=== PATIENT | female | born 1960 | race Caucasian/White ===

== ENCOUNTER 2020-08-22 15:16 | Outpatient (REF) | payer MEDICARE, MEDICAID, SELFPAY | END 2020-08-22 15:17 | disposition home or self-care (01) | LOC: HO.LAB 15:16 | PROVIDERS: Visit Provider Internal Medicine | DX: Z20.822 Contact with and (suspected) exposure to COVID-19 (principal) | CPT/HCPCS: 36415; C9803; U0003 ==

== ENCOUNTER 2020-10-10 09:25 | Outpatient (REF) | payer MEDICARE, MEDICAID, SELFPAY | END 2020-10-10 09:26 | disposition home or self-care (01) | LOC: HO.LAB 09:25 | PROVIDERS: PCP Registered Nurse; Visit Provider Internal Medicine | DX: Z20.822 Contact with and (suspected) exposure to COVID-19 (principal) | CPT/HCPCS: 36415; C9803; U0003; U0005 ==

== ENCOUNTER 2020-12-25 23:56 | Emergency (ER) | payer MEDICARE, MEDICAID, SELFPAY ==
[2020-12-26 00:22] VITALS: BP 122/91; PULSE 79; RESP 18; TEMP 36.6; O2SAT 97; BMI 30.7
--- NOTE | 2020-12-26 00:42 | ECG_ITS ---
Test Reason : PALPITTAIONS Blood Pressure : / mmHG Vent. Rate : 073 BPM Atrial Rate : 073 BPM P-R Int : 198 ms QRS Dur : 068 ms QT Int : 422 ms P-R-T Axes : 050 047 048 degrees QTc Int : 464 ms Normal sinus rhythm Normal ECG No previous ECGs available Referred By: Miguel Bhakta Electronically Signed By:ARJUN CADENA MD
--- NOTE | 2020-12-26 01:37 | ED_ITS ---
HPI - Arrhythmia/Palpitations General Chief Complaint: Arrhythmia/Palpitations Stated Complaint: ? Time Seen by Provider: 12/26/20 00:42 Source: patient Mode of arrival: EMS Limitations: no limitations History of Present Illness HPI narrative: Patient history of anxiety no known coronary artery disease often get palpitation lasting a few seconds in the past but today around 23:00 while relaxing watching TV noticed heart was beating fast with dizziness lasted for about half an hour when EMS came patient was getting better and heart rate was between 90 and 110. Patient denies any chest pain no shortness of breath no fever or chills no cough no syncope episode patient never had evaluation done by sales compensation analyst patient was feeling anxious after the palpitations started Related Data Allergies Allergy/AdvReac Type Severity Reaction Status Date / Time NSAIDS (Non-Steroidal Allergy Intermediate QT Unverified 05/02/20 15:01 Anti-Inflamma INTERVAL [NSAIDS (NON-STEROIDAL CHANGES ANTI-INFLAMMA] ondansetron [From ZOFRAN] Allergy Intermediate ITCHING Unverified 05/02/20 15:01 Review of Systems Review of Systems: Constitutional : No Weight loss, No Fever, No Chills ENT/Mouth : No sore throat, No Rhinorrhea Eyes: No Eye Pain, No Swelling Cardiovascular : No Chest Pain, + palpitations Respiratory : No Cough, No Sputum, no shortness of breath Gastrointestinal : no Nausea, No Vomiting, No Diarrhea, No abdominal Pain, no black stools Genitourinary : No Dysuria, No Urinary Frequency Musculoskeletal : No joint pain, No Myalgias, No Joint Swelling Skin : No Skin Lesions, No rash Neuro : No Weakness, No Numbness, No Dizziness, No Headache Psych : + Anxiety/Panic, No Depression Heme/Lymph: No Bruising, No Lymphadenopathy Endocrine : No Polyuria, No Polydipsia All other systems reviewed and are negative [facility] Social History Social History Advance Directives: No Advance Directives Information Provided: No Physical Exam Vital Signs: Vital Signs: Last Vital Signs Temp 98 F 12/26/20 00:22 Pulse 79 12/26/20 00:22 Resp 18 12/26/20 00:22 BP 122/91 H 12/26/20 00:22 Pulse Ox 97 12/26/20 00:22 Body Mass Index 30.7 Appearance: Alert. Oriented X3. No acute distress. Eyes: PERRLA, No Nystagmus ENT: Pharynx normal. Oral Mucosa moist Neck: Normal inspection. Neck supple. CVS: Normal heart rate and rhythm. Pulses normal. Respiratory: No respiratory distress. Equal air entry bilateral, no wheezing/rales/rhonchi Abdomen: Soft and nontender. Bowel sounds are present, no mass palpable, no CVA tenderness Skin: Skin warm and dry. Normal skin color. Normal skin turgor. Extremities: No lower extremity edema. No calf tenderness Neuro: Oriented X 3. No motor deficit. No sensory deficit.No cerebellar signs , cranial nerves II-XII intact MDM - Arrhythmia/Palpitations MDM Narrative Medical decision making narrative: Patient with episodes of palpitation video software engineer showing normal sinus rhythm in 80s no arrhythmias noticed will check cardiac enzymes. Follow-up with sales compensation analyst as outpatient Cardiac enzyme negative lab stable EKG without any arrhythmias Nocardia will notice in the video software engineer while patient stayed in the ER will discharge patient home Medical Records Attestation: I reviewed the patient's medical records. Lab Data Attestation: I reviewed the patient's lab results. Result diagrams: 12/26/20 01:48 12/26/20 01:48 Labs: Lab Results 12/26/20 12/26/20 12/26/20 Range/Units 01:48 01:48 01:48 WBC 7.7 (4.8-10.8) X10*3/uL RBC 4.41 (4.20-5.50) X10*6/uL Hgb 13.4 (12.0-16.0) g/dl Hct 39.5 (37-47) % MCV 89.6 (80-98) fL MCH 30.4 (27.0-33.0) pg MCHC 33.9 (31.0-35.0) g/dl RDW 12.2 (11.0-16.0) % Plt Count 341 (160-400) X10*3/uL MPV 9.2 L (9.4-12.3) fL Immature Gran % (Auto) 0.3 (0.0-0.4) % Neut % (Auto) 47.5 (45-73) % Lymph % (Auto) 41.4 H (20-40) % Hardeman % (Auto) 7.1 (2-11) % Eos % (Auto) 2.9 (0-4) % Baso % (Auto) 0.8 (0-2) % Lymph # (Auto) 3.2 (1.2-4.9) X10*3/uL Hardeman # (Auto) 0.5 (0.1-1.2) X10*3/uL Eos # (Auto) 0.2 (0.0-0.4) X10*3/uL Baso # (Auto) 0.1 (0.0-0.2) X10*3/uL Abs Immat Gran (auto) 0.02 (0.00-0.03) X10*3/uL Absolute Neuts (auto) 3.6 (2.0-8.3) X10*3/uL Absolute Nucleated RBC 0.000 (0.0-0.012) X10*3/uL Nucleated RBC % (auto) 0.0 (0.0-0.2) /100WBC Hold Blue Top SEE NOTE Sodium 140 (135-145) mmol/L Potassium 3.6 (3.3-5.1) mmol/L Chloride 104 (96-108) mmol/L Carbon Dioxide 25 (22-29) mmol/L Anion Gap 15 (12-20) BUN 10 (9-16) mg/dL Creatinine 0.75 (0.5-1.4) mg/dL Estim Creat Clear Calc 68.4 Estimated GFR > 60 Random Glucose 130 H (60-115) mg/dL Calcium 9.7 (8.4-10.2) mg/dL Troponin I High Sens (<3.5-17.0) ng/L 12/26/20 Range/Units 01:48 WBC (4.8-10.8) X10*3/uL RBC (4.20-5.50) X10*6/uL Hgb (12.0-16.0) g/dl Hct (37-47) % MCV (80-98) fL MCH (27.0-33.0) pg MCHC (31.0-35.0) g/dl RDW (11.0-16.0) % Plt Count (160-400) X10*3/uL MPV (9.4-12.3) fL Immature Gran % (Auto) (0.0-0.4) % Neut % (Auto) (45-73) % Lymph % (Auto) (20-40) % Hardeman % (Auto) (2-11) % Eos % (Auto) (0-4) % Baso % (Auto) (0-2) % Lymph # (Auto) (1.2-4.9) X10*3/uL Hardeman # (Auto) (0.1-1.2) X10*3/uL Eos # (Auto) (0.0-0.4) X10*3/uL Baso # (Auto) (0.0-0.2) X10*3/uL Abs Immat Gran (auto) (0.00-0.03) X10*3/uL Absolute Neuts (auto) (2.0-8.3) X10*3/uL Absolute Nucleated RBC (0.0-0.012) X10*3/uL Nucleated RBC % (auto) (0.0-0.2) /100WBC Hold Blue Top Sodium (135-145) mmol/L Potassium (3.3-5.1) mmol/L Chloride (96-108) mmol/L Carbon Dioxide (22-29) mmol/L Anion Gap (12-20) BUN (9-16) mg/dL Creatinine (0.5-1.4) mg/dL Estim Creat Clear Calc Estimated GFR Random Glucose (60-115) mg/dL Calcium (8.4-10.2) mg/dL Troponin I High Sens < 3.5 (<3.5-17.0) ng/L ECG Data Attestation: I personally reviewed and interpreted this ECG as follows: Interpretation: Normal sinus rhythm heart rate 73 beats per minute normal intervals normal axis no acute ST T wave changes no acute ischemia Discharge Plan Discharge Clinical Impression: Palpitations, Anxiety Patient Disposition: Home, Self-Care Instructions: Heart Palpitations (ED), Anxiety (ED) Additional Instructions: Follow with PCP for further evaluation including Holter monitoring Report to the ER if passing out episode
[2020-12-26 01:53] LABS: Basophils Absolute Auto 0.1 X10*3/uL (0.0-0.2); Basophils Percent Auto 0.8 % (0-2); Eosinophils Absolute Auto 0.2 X10*3/uL (0.0-0.4); Eosinophils Percent Auto 2.9 % (0-4); Hematocrit 39.5 % (37-47); Hemoglobin 13.4 g/dl (12.0-16.0); Imm Gran Abs Auto 0.02 X10*3/uL (0.00-0.03); Imm Gran Pct Auto 0.3 % (0.0-0.4); Lymphocytes Absolute Auto 3.2 X10*3/uL (1.2-4.9); Lymphocytes Percent Auto 41.4 % (20-40); MANUAL DIFF FLAG NO; Mean Corpuscular HGB Conc 33.9 g/dl (31.0-35.0); Mean Corpuscular Hemoglobin 30.4 pg (27.0-33.0); Mean Corpuscular Volume 89.6 fL (80-98); Mean Platelet Volume 9.2 fL (9.4-12.3); Monocytes Absolute Auto 0.5 X10*3/uL (0.1-1.2); Monocytes Percent Auto 7.1 % (2-11); Neutrophils Absolute Auto 3.6 X10*3/uL (2.0-8.3); Neutrophils Percent Auto 47.5 % (45-73); Platelet Count 341 X10*3/uL (160-400); Red Blood Count 4.41 X10*6/uL (4.20-5.50); Red Cell Distribution Width 12.2 % (11.0-16.0); White Blood Count 7.7 X10*3/uL (4.8-10.8)
[2020-12-26 02:16] LABS: Anion Gap 15 (12-20); Blood Urea Nitrogen 10 mg/dL (9-16); Calcium 9.7 mg/dL (8.4-10.2); Carbon Dioxide 25 mmol/L (22-29); Chloride 104 mmol/L (96-108); Creatinine Clr Calc Pharmacy 68.4; Estimated Glomerular Filt Rate > 60; Glucose Random 130 mg/dL (60-115); Potassium 3.6 mmol/L (3.3-5.1); Sodium 140 mmol/L (135-145)
[2020-12-26 02:24] LABS: Troponin-I High Sensitivity < 3.5 ng/L (<3.5-17.0)
--- NOTE | 2020-12-26 02:51 | PC.NURSE ---
EKG OBTAINED TO MD. CHEUNG AT BEDSIDE FOR EVAL. PT IS GETTING DISCHARGED TO HOME. IV REMOVED INTACT. PT VERBALIZED U/S OF DISCHARGE INSTRUCTIONS AND LEFT ED AMBULATORY WITH STEADY EVEN GAIT TO WR.
== END 2020-12-26 02:51 | disposition home or self-care (01) ==
PROVIDERS: Emergency Provider Internal Medicine
DX: R00.2 Palpitations (principal); F41.9 Anxiety disorder, unspecified
CPT/HCPCS: 36415; 80048; 84484; 85025; 93005; 99283; 99284

== ENCOUNTER 2021-03-25 07:31 | Day surgery (SDC) | payer MEDICARE, MEDICAID, SELFPAY ==
[2021-03-18 10:13] VITALS: BMI 28.9
--- NOTE | 2021-03-24 08:14 | P.CONAN_ITS ---
HPI - Anesthesia Eval Consult details Narrative: 60yo F for Upper Endoscopy [facility] Past Medical History Medical History (Updated 03/18/21 @ 10:13 by Coco Aaron) Anxiety Diabetes GERD (gastroesophageal reflux disease) Hepatic hemangioma Hyperlipidemia Hypothyroid Migraine headache PTSD (post-traumatic stress disorder) Surgical History Surgical History (Updated 03/18/21 @ 10:06 by Coco Aaron) H/O colonoscopy History of Hx of cataract extraction Hx of rotator cuff surgery Social History Social History Patient Tobacco Use Status: Current everyday Tobacco user Tobacco use type: Cigarette Cigarette Packs Per Day: 1 Cigarettes Per Day: 20.0 Use of substances other than those prescribed or required for medical reasons: No Advance Directives Information Provided: No Meds Allergies Allergy/AdvReac Type Severity Reaction Status Date / Time ondansetron [From ZOFRAN] Allergy Intermediate ITCHING Verified 03/18/21 10:08 lidocaine Allergy Itching Verified 03/25/21 07:52 NSAIDS (Non-Steroidal AdvReac Intermediate Nausea and Verified 03/25/21 07:52 Anti-Inflamma Vomiting Home Medications Medication Instructions Recorded Confirmed Last Taken Type aspirin 81 mg tablet,delayed 81 mg PO DAILY 03/18/21 03/25/21 03/24/21 16:00 History release (Aspirin Low Dose) dicyclomine 20 mg tablet 1 tab PO TID 03/18/21 03/18/21 Unknown History erenumab-aooe 70 mg/mL 1 ml SUBCUT Q4W 03/18/21 03/18/21 Unknown History subcutaneous auto-injector (Aimovig Autoinjector) gabapentin 100 mg capsule 1 cap PO BID 03/18/21 03/18/21 Unknown History gabapentin 600 mg tablet 300 mg PO BEDTIME 03/18/21 03/18/21 Unknown History lamotrigine 200 mg tablet 1 tab PO DAILY 03/18/21 03/18/21 Unknown History lamotrigine 25 mg tablet 1 tab PO QAM 03/18/21 03/18/21 Unknown History levothyroxine 100 mcg tablet 1 tab PO DIRECTED 03/18/21 03/18/21 Unknown History metformin 500 mg tablet 1 tab PO BID 03/18/21 03/25/21 03/24/21 17:00 History pantoprazole 40 mg tablet,delayed 1 tab PO DAILY 03/18/21 03/18/21 Unknown History release prazosin 1 mg capsule 1 cap PO BEDTIME 03/18/21 03/18/21 Unknown History rimegepant 75 mg disintegrating 1 tab PO DAILY PRN 03/18/21 03/18/21 Unknown History tablet (Nurtec ODT) simvastatin 40 mg tablet 1 tab PO BEDTIME 03/18/21 03/18/21 Unknown History Exam Exam Date and Time: March 24, 2021 0814 Height,Weight and Vital Signs: Height 5 ft Weight 67.132 kg Pertinent Lab Results Pertinent Lab Results: Laboratory Tests 12/26/20 12/26/20 01:48 01:48 WBC 7.7 Hgb 13.4 Hct 39.5 Plt Count 341 Sodium 140 Potassium 3.6 Chloride 104 Carbon Dioxide 25 BUN 10 Creatinine 0.75 Narrative Narrative: EKG 12/2020 Vent. Rate : 073 BPM ? ? Atrial Rate : 073 BPM ?? P-R Int : 198 ms? QRS Dur : 068 ms ? ? QT Int : 422 ms ? ? ? P-R-T Axes : 050 047 048 degrees ?? QTc Int : 464 ms ? Normal sinus rhythm Normal ECG No previous ECGs available
--- NOTE | 2021-03-25 08:02 | HO.ANESPROP2 ---
[facility] Past Medical History Medical History (Updated 03/18/21 @ 10:13 by Coco Aaron) Anxiety Diabetes GERD (gastroesophageal reflux disease) Hepatic hemangioma Hyperlipidemia Hypothyroid Migraine headache PTSD (post-traumatic stress disorder) Surgical History Surgical History (Updated 03/18/21 @ 10:06 by Coco Aaron) H/O colonoscopy History of Hx of cataract extraction Hx of rotator cuff surgery Social History Social History Patient Tobacco Use Status: Current everyday Tobacco user Tobacco use type: Cigarette Cigarette Packs Per Day: 1 Cigarettes Per Day: 20.0 Use of substances other than those prescribed or required for medical reasons: No Advance Directives Information Provided: No Meds Allergies Allergy/AdvReac Type Severity Reaction Status Date / Time ondansetron [From ZOFRAN] Allergy Intermediate ITCHING Verified 03/18/21 10:08 lidocaine Allergy Itching Verified 03/25/21 07:52 NSAIDS (Non-Steroidal AdvReac Intermediate Nausea and Verified 03/25/21 07:52 Anti-Inflamma Vomiting Active Medications: Current Medications Generic Name Dose Route Start Last Admin Trade Name Freq PRN Reason Stop Dose Admin Albuterol Sulfate 2.5 mg 03/25/21 07:45 Albuterol Sulfate (0.083%) 2.5 Mg/3 Ml Vial.Neb INHALE ONCE PRN Shortness of Breath/Wheezing Lactated Ringer's 1,000 mls @ 100 mls/hr 03/25/21 07:45 Lr IVCONT .Q10H JOE Home Medications Medication Instructions Recorded Confirmed Last Taken Type aspirin 81 mg tablet,delayed 81 mg PO DAILY 03/18/21 03/25/21 03/24/21 16:00 History release (Aspirin Low Dose) dicyclomine 20 mg tablet 1 tab PO TID 03/18/21 03/18/21 Unknown History erenumab-aooe 70 mg/mL 1 ml SUBCUT Q4W 03/18/21 03/18/21 Unknown History subcutaneous auto-injector (Aimovig Autoinjector) gabapentin 100 mg capsule 1 cap PO BID 03/18/21 03/18/21 Unknown History gabapentin 600 mg tablet 300 mg PO BEDTIME 03/18/21 03/18/21 Unknown History lamotrigine 200 mg tablet 1 tab PO DAILY 03/18/21 03/18/21 Unknown History lamotrigine 25 mg tablet 1 tab PO QAM 03/18/21 03/18/21 Unknown History levothyroxine 100 mcg tablet 1 tab PO DIRECTED 03/18/21 03/18/21 Unknown History metformin 500 mg tablet 1 tab PO BID 03/18/21 03/25/21 03/24/21 17:00 History pantoprazole 40 mg tablet,delayed 1 tab PO DAILY 03/18/21 03/18/21 Unknown History release prazosin 1 mg capsule 1 cap PO BEDTIME 03/18/21 03/18/21 Unknown History rimegepant 75 mg disintegrating 1 tab PO DAILY PRN 03/18/21 03/18/21 Unknown History tablet (Nurtec ODT) simvastatin 40 mg tablet 1 tab PO BEDTIME 03/18/21 03/18/21 Unknown History Exam Exam Date and Time: March 25, 2021 0802 Height,Weight and Vital Signs: Height 5 ft Weight 67.132 kg Airway Mallampati Class: II TM Dist: >3cm Neck ROM: Full Denture: Upper
[2021-03-25 08:10] VITALS: BP 114/66; PULSE 77; RESP 16; TEMP 36.7; O2SAT 96
[2021-03-25 08:11] LABS: Glucose, Whole Blood 111 mg/dL (60-115)
[2021-03-25] MEDS: Lactated Ringers 1,000 ML 100 ML IVCONT (08:19)
--- NOTE | 2021-03-25 08:27 | MHC.SHP ---
Pre-Procedural Eval Section A Date of Service: 03/25/21 The patient is an INPATIENT: No Changes since office visit: No Cold of Flu in the past 2 weeks, No New Medical Problems, No Changes in Medication and No Patient answered all questions The History & Physical has been completed within 30 days and I have reviewed it.: Yes Section B Chief Complaint: reflux disease Allergies: Allergies Allergy/AdvReac Type Severity Reaction Status Date / Time ondansetron [From ZOFRAN] Allergy Intermediate ITCHING Verified 03/18/21 10:08 lidocaine Allergy Itching Verified 03/25/21 07:52 NSAIDS (Non-Steroidal AdvReac Intermediate Nausea and Verified 03/25/21 07:52 Anti-Inflamma Vomiting Plan I have reviewed the history and physical and performed a pertinent physical examination on my patient. No changes have occurred unless specified.
--- NOTE | 2021-03-25 08:37 | P.BOP_ITS ---
Brief Operative Note Date of Service: 03/25/21 Pre-op diagnosis: gerd Post-op diagnosis: same Surgeon: Morgan Grajeda Anesthesia: MAC Was an Commercial Litigation Associate used for this Procedure?: No Estimated blood loss (mL): 5 Pathology: other (bxs antrum, egj, duodenum) Condition: stable Disposition: PACU
[2021-03-25 08:43] VITALS: BP 102/61; PULSE 68; RESP 16; TEMP 36.3; O2SAT 95
[2021-03-25 08:58] VITALS: BP 109/85; PULSE 68; RESP 16; TEMP 36.3; O2SAT 98
--- NOTE | 2021-03-25 09:29 | OP_ITS ---
SURGEON: Morgan Grajeda MD INDICATIONS: Gastroesophageal reflux disease. PREOPERATIVE DIAGNOSIS: POSTOPERATIVE DIAGNOSIS: PROCEDURE PERFORMED: Upper endoscopy with biopsy. ESTIMATED BLOOD LOSS: COMPLICATIONS: ANESTHESIA: ASSISTANTS: SPECIMENS: MEDICATIONS: Monitored anesthesia care. DESCRIPTION OF PROCEDURE: History and physical was performed. The risks and benefits of the procedure were explained to the patient and informed consent was obtained. The patient was placed in left lateral decubitus position. The Olympus video gastroscope was introduced into the esophagus, stomach, duodenum. Examination was performed and the scope was removed. She tolerated the procedure well and was taken to recovery area in stable condition. FINDINGS: Esophagus: The esophagus was normal. Biopsies were obtained from the EG junction which was slightly irregular. Stomach: The stomach was normal. Biopsies were obtained from the antrum. Duodenum: The bulb and second portion were normal. Biopsies were obtained from the second portion. IMPRESSION: Normal upper endoscopy. RECOMMENDATION: Follow up with the biopsy results. MD DANIELLE Weaver/MODL / [id number]
== END 2021-03-25 09:23 | disposition home or self-care (01) ==
PROVIDERS: Visit Provider Internal Medicine Gastroenterology
PROC: 0DJ08ZZ Inspection of Upper Intestinal Tract, Via Natural or Artificial Opening Endoscopic (ICD-10-PCS; CPT 43235; principal; 2021-03-25 08:50)
DX: K21.9 Gastro-esophageal reflux disease without esophagitis (principal); K29.50 Unspecified chronic gastritis without bleeding; E11.9 Type 2 diabetes mellitus without complications; Z79.84 Long term (current) use of oral hypoglycemic drugs; E78.5 Hyperlipidemia, unspecified; D18.03 Hemangioma of intra-abdominal structures; F43.10 Post-traumatic stress disorder, unspecified; F41.9 Anxiety disorder, unspecified; E03.9 Hypothyroidism, unspecified; Z79.82 Long term (current) use of aspirin; Z79.899 Other long term (current) drug therapy; Z88.8 Allergy status to other drugs, medicaments and biological substances; F17.210 Nicotine dependence, cigarettes, uncomplicated
CPT/HCPCS: 43239; 82947; 88305; 88342

== ENCOUNTER 2023-11-14 04:39 | Emergency (ER) | payer MEDICARE, MEDICAID, SELFPAY ==
--- NOTE | ~2023-11-14 | XR_ITS ---
EXAMINATION: XR SHOULDER, LEFT CLINICAL INFORMATION: Pain COMPARISON: 12/31/2016 TECHNIQUE: Three views of the left shoulder. FINDINGS: Glenohumeral alignment appears anatomic with minimal degenerative change inferiorly. No acute fracture is seen. The acromioclavicular joint is intact with mild degenerative change. XR/XR shoulder LT min 2V IMPRESSION: No acute findings. Mild degenerative changes.
[2023-11-14 04:44] VITALS: BP 137/84; PULSE 91; RESP 16; TEMP 36.7; O2SAT 98
[2023-11-14 04:49] VITALS: BMI 29.3
--- NOTE | 2023-11-14 05:22 | ED.EXTPRO ---
HPI - Extremity Problem General Chief complaint: Extremity Problem Stated complaint: shoulder pain Time Seen by Provider: 11/14/23 05:00 Source: patient Mode of arrival: ambulatory Limitations: no limitations History of Present Illness HPI Narrative: 63 yo female with PMH of L rotator cuff surgery in 2018, DM, hypothyroidism, GERD, HLD, here with c/o waking up yesterday from nap with intense L shoulder pain and now has rotator cuff pain and issues raising arm due to the pain. She has had issues since her surgery in 2018. Taking tylenol with little relief. MD Complaint: joint pain Onset (ago): hour(s) (yesterday ) Pain Consistency: constant Location: left and upper extremity Quality: aching and constant Radiation: none Relieving factors: immobilization Exacerbating factors: range of motion and palpation Associated symptoms: denies other symptoms Context: other (issues with prior rotator cuff surgery) Related Data Home Medications Medication Instructions Recorded Confirmed aspirin 81 mg tablet,delayed 81 mg PO DAILY 03/18/21 03/25/21 release (Liang Low Dose Aspirin) dicyclomine 20 mg tablet 1 tab PO TID 03/18/21 03/18/21 erenumab-aooe 70 mg/mL 1 ml subcut Q4W 03/18/21 03/18/21 subcutaneous auto-injector (Aimovig Autoinjector) gabapentin 100 mg capsule 1 cap PO BID 03/18/21 03/18/21 gabapentin 600 mg tablet 300 mg PO BEDTIME 03/18/21 03/18/21 lamotrigine 200 mg tablet 1 tab PO DAILY 03/18/21 03/18/21 lamotrigine 25 mg tablet 1 tab PO QAM 03/18/21 03/18/21 levothyroxine 100 mcg tablet 1 tab PO DIRECTED 03/18/21 03/18/21 metformin 500 mg tablet 1 tab PO BID 03/18/21 03/25/21 pantoprazole 40 mg tablet,delayed 1 tab PO DAILY 03/18/21 03/18/21 release prazosin 1 mg capsule 1 cap PO BEDTIME 03/18/21 03/18/21 rimegepant 75 mg disintegrating 1 tab PO DAILY PRN migraine 03/18/21 03/18/21 tablet (Nurtec ODT) simvastatin 40 mg tablet 1 tab PO BEDTIME 08/03/21 08/03/21 Previous Rx's Medication Instructions Recorded hydrocodone 5 mg-acetaminophen 325 1 tab PO Q6H PRN pain #10 tabs 11/14/23 mg tablet Allergies Allergy/AdvReac Type Severity Reaction Status Date / Time ondansetron [From ZOFRAN] Allergy Intermediate ITCHING Verified 11/14/23 04:54 lidocaine Allergy Itching Verified 11/14/23 04:54 NSAIDS (Non-Steroidal AdvReac Intermediate Nausea and Verified 11/14/23 04:54 Anti-Inflamma Vomiting diphenhydramine AdvReac Itching Verified 11/14/23 04:54 [From Benadryl] lisinopril AdvReac Nausea Verified 11/14/23 04:54 Review of Systems Review of Systems: Constitutional : No Fever, No Chills ENT/Mouth : No Ear Pain, No Hoarseness, No sore throat Eyes: No Eye Pain, No Swelling, No Redness, No Foreign Body Cardiovascular : No Chest Pain, No SOB Respiratory : No Cough, No Dyspnea Gastrointestinal : No Nausea, No Vomiting, No Diarrhea, No abdominal Pain Genitourinary : No Dysuria, No Hematuria Musculoskeletal : positive joint pain, No Myalgias, No Joint Swelling Skin : No Skin lacerations, No rash Neuro : No Weakness, No Numbness, No Loss of Consciousness All other systems reviewed and are negative PMFSH Past Medical History Attestation statement: The following information was validated with the patient. Source: old records reviewed Medical History Migraine headache Hyperlipidemia Hypothyroid Anxiety PTSD (post-traumatic stress disorder) Diabetes GERD (gastroesophageal reflux disease) Hepatic hemangioma Surgical History Hx of cataract extraction Hx of rotator cuff surgery History of H/O colonoscopy Social History Social History Alcohol intake: never Patient Tobacco Use Status: Current everyday Tobacco user Tobacco use type: Cigarette Cigarette Packs Per Day: 1 Cigarettes Per Day: 20.0 Smoked in Last 30 Days: No Use of substances other than those prescribed or required for medical reasons: No Advance Directives: No Advance Directives Information Provided: No Physical Exam Vital Signs: Vital Signs: Last Vital Signs Temp 98.1 F 11/14/23 04:44 Pulse 91 11/14/23 04:44 Resp 16 11/14/23 04:44 BP 137/84 11/14/23 04:44 Pulse Ox 98 11/14/23 04:44 O2 Del Method Room Air 11/14/23 04:44 BMI result Body Mass Index 29.3 Appearance: Alert. Oriented X3. No acute distress. Eyes: Pupils equal, round and reactive to light. ENT: Pharynx normal. Neck: Normal inspection. Neck supple. CVS: Normal heart rate and rhythm. Pulses normal. Respiratory: No respiratory distress. Breath sounds normal. Abdomen: Soft and nontender. Skin: Skin warm and dry. Normal skin color. Normal skin turgor. Extremities: No lower extremity edema. ttp along L shoulder joint no effusion no erythema no warmth distal NV intact cannot due to ROM testing or rotator cuff exam due to pain Neuro: Oriented X 3. No motor deficit. No sensory deficit. Medical Decision Making Medical Decision Making MDM Narrative: 63 yo female with PMH of L rotator cuff surgery in 2018, DM, hypothyroidism, GERD, HLD here with c/o L shoulder pain concerning for rotator cuff pathology she has appointment with her orthopedist on Wednesday - at this time will need xray and analgesia with close follow up. distal NV intact. Differential Diagnosis Differential Diagnoses: The differential diagnosis associated with the presentation includes strain, rotator cuff, impingement Admission/Observation Consideration of admission/observation: Escalation of care including admission/observation considered NV intact, can manage pain at home stable for DC Independent Interpretation I performed an independent interpretation of an: Plain X-Ray (no fracture) Radiology Impression Discussion of test interpretation with radiology: I have reviewed the radiologist's reading. External Record Review External record reviewed: Inpatient record Prescription Management I considered prescription management with: Pain Medication Discharge Plan Discharge Clinical Impression: Shoulder pain with history of repair of rotator cuff Patient Disposition: Home, Self-Care Instructions: Shoulder Pain (ED) Additional Instructions: no fracture seen on xray, follow up with orthopedic doctor return for worsening symptoms, cold hand, numbness or any other concerns. CLINICAL INFORMATION: Pain COMPARISON: 12/31/2016 TECHNIQUE: Three views of the left shoulder. FINDINGS: Glenohumeral alignment appears anatomic with minimal degenerative change inferiorly. No acute fracture is seen. The acromioclavicular joint is intact with mild degenerative change. XR/XR shoulder LT min 2V IMPRESSION: No acute findings. Mild degenerative changes. Prescriptions: New hydrocodone-acetaminophen 5-325 mg tablet 1 tab PO Q6H PRN (Reason: pain) Qty: 10 0RF Rx Instructions: partial fill okay; Partial Fill upon patient request. No Action metformin 500 mg tablet 1 tab PO BID gabapentin 600 mg tablet 300 mg PO BEDTIME lamotrigine 200 mg tablet 1 tab PO DAILY prazosin 1 mg capsule 1 cap PO BEDTIME aspirin [Liang Low Dose Aspirin] 81 mg Tablet,Delayed Release (Dr/Ec) 81 mg PO DAILY simvastatin 40 mg tablet 1 tab PO BEDTIME lamotrigine 25 mg tablet 1 tab PO QAM levothyroxine 100 mcg tablet 1 tab PO DIRECTED dicyclomine 20 mg tablet 1 tab PO TID pantoprazole 40 mg tablet,delayed release (DR/EC) 1 tab PO DAILY gabapentin 100 mg capsule 1 cap PO BID Aimovig Autoinjector 70 mg/mL auto-injector 1 ml subcut Q4W Nurtec ODT 75 mg tablet,disintegrating 1 tab PO DAILY PRN (Reason: migraine)
[2023-11-14 06:15] VITALS: BP 113/64; PULSE 88; RESP 14; TEMP 36.9; O2SAT 96
[2023-11-14 06:18] VITALS: BP 113/64; PULSE 88; RESP 14; TEMP 36.9
== END 2023-11-14 06:20 | disposition home or self-care (01) ==
PROVIDERS: Emergency Provider Emergency Medicine
DX: M25.512 Pain in left shoulder (principal); E11.9 Type 2 diabetes mellitus without complications
CPT/HCPCS: 73030; 99283; 99284

== ENCOUNTER 2024-06-28 09:21 | Emergency (ER) | payer OTHER, SELFPAY ==
--- NOTE | 2024-06-28 09:26 | ED_ITS ---
HPI - General Adult General Chief complaint: Psychiatric Symptoms Stated complaint: THREATENED HI TOWARDS SISTER/SI PER EMS Time Seen by Provider: 06/28/24 09:26 Source: patient and EMS Mode of arrival: EMS Limitations: no limitations History of Present Illness ED Provider: Genia Chapa PA-C HPI narrative: Patient is a 63 year old assigned female at with a history of PTSD, anxiety, migraines, DM, and GERD presenting to the emergency department today after having an outburst of anger. Patient states that she found out a member of her family cannot be at their family gathering for the upcoming hol's and in her anger made vague SI and HI statements. Patient states that she does not currently have any thoughts of hurting herself or others. Patient denies any dizziness, lightheadedness, abdominal pain, nausea, vomiting, fever, chills, blurry vision, double vision, loss of vision, chest pain, difficulty breathing, shortness of breath, back pain, night sweats, pain with urination, increased urinary frequency, increased urinary urgency, blood in her urine or stool, syncope or a near syncopal episode, recent trauma or falls, bowel incontinence, bladder incontinence, or any other complaints at this time. Relieving factors: none Exacerbating factors: none Associated symptoms: denies other symptoms Treatments prior to arrival: none Related Data Home Medications ?Medication ?Instructions ?Recorded ?Confirmed dicyclomine 20 mg tablet 1 tab PO TID 03/18/21 06/28/24 erenumab-aooe 70 mg/mL 1 ml subcut Q4W 03/18/21 06/28/24 subcutaneous auto-injector (Aimovig Autoinjector) lamotrigine 200 mg tablet 1 tab PO BEDTIME 03/18/21 06/28/24 lamotrigine 25 mg tablet 1 tab PO BID 03/18/21 06/28/24 metformin 500 mg tablet 1 tab PO BID 03/18/21 06/28/24 pantoprazole 40 mg tablet,delayed 1 tab PO DAILY 03/18/21 06/28/24 release atorvastatin 20 mg tablet 20 mg PO BEDTIME 06/28/24 06/28/24 buspirone 15 mg tablet 15 mg PO BID 06/28/24 06/28/24 fluticasone propionate 50 1 spray intranasal BID 06/28/24 06/28/24 mcg/actuation nasal spray,suspension levothyroxine 88 mcg tablet 88 mcg PO DAILY 06/28/24 06/28/24 losartan 50 mg tablet 50 mg PO DAILY 06/28/24 06/28/24 riboflavin (vitamin B2) 400 mg 400 mg PO DAILY 06/28/24 06/28/24 tablet sucralfate 1 gram tablet 1 g PO QID 06/28/24 06/28/24 Allergies Allergy/AdvReac Type Severity Reaction Status Date / Time ondansetron [From ZOFRAN] Allergy Intermediate ITCHING Verified 06/28/24 09:51 lidocaine Allergy Itching Verified 06/28/24 09:51 NSAIDS (Non-Steroidal AdvReac Intermediate Nausea and Verified 06/28/24 09:51 Anti-Inflamma Vomiting diphenhydramine AdvReac Itching Verified 06/28/24 09:51 [From Benadryl] lisinopril AdvReac Nausea Verified 06/28/24 09:51 Review of Systems 2 Constitutional: Constitutional: Reports no additional constitutional complaints, Denies chills, Denies fever(s) and Denies night sweats Eyes: Eyes: Reports no additional eye complaints, Denies blurry vision, Denies change in vision, Denies diplopia, Denies eye discharge, Denies loss of vision and Denies eye pain ENT: Denies dizziness Cardiovascular: Cardiovascular: Reports no additional cardiovascular complaints, Denies chest pain, Denies lightheadedness, Denies Loss of Consciousness and Denies dyspnea Respiratory: Respiratory: Reports no additional respiratory complaints and Denies dyspnea Gastrointestinal: Gastrointestinal: Reports no additional gastrointestinal complaints, Denies abdominal pain, Denies melena, Denies hematochezia, Denies change in bowel habits and Denies change in stool character Genitourinary: Genitourinary: Denies hematuria, Denies urinary frequency, Denies dysuria, Denies urinary incontinence, Denies urinary hesitancy and Denies urinary urgency Musculoskeletal: Musculoskeletal: Reports no additional musculoskeletal complaints, Denies numbness and Denies tingling Neurologic: Denies dizziness, Denies loss of vision, Denies numbness and Denies tingling Psychiatric: Psychiatric: Reports no additional psychiatric complaints Endocrine: Endocrine: Reports no additional endocrine complaints Hematologic/Lymphatic: Hematologic/Lymphatic: Reports no additional hematologic/lymphatic complaints Allergic/Immunologic: Allergic/Immunologic: Reports no additional allergic/immunologic complaints PMFSH Past Medical History Attestation statement: The following information was validated with the patient. Source: old records reviewed and nursing notes reviewed Medical History Migraine headache Hyperlipidemia Hypothyroid Anxiety PTSD (post-traumatic stress disorder) Diabetes GERD (gastroesophageal reflux disease) Hepatic hemangioma Surgical History Hx of cataract extraction Hx of rotator cuff surgery History of H/O colonoscopy Social History Social History Alcohol intake: never Patient Tobacco Use Status: Current everyday Tobacco user Tobacco use type: Cigarette Cigarette Packs Per Day: 1 Cigarettes Per Day: 20.0 Smoked in Last 30 Days: No Advance Directives: No Advance Directives Information Provided: Yes Do you have a plan to hurt others: No Plan Physical Exam ED Vital Signs: Vital Signs - 24 hr 06/28/24 09:50 06/28/24 14:16 Temperature 98.5 F 98.5 F Pulse Rate 105 H 105 H Respiratory Rate 16 16 Blood Pressure 173/88 H 173/88 H Pulse Oximetry 94 94 Oxygen Delivery Method Room Air Room Air BMI result Body Mass Index 30.2 Const General: cooperative, no acute distress, alert and awake Nutritional Appearance: well nourished Orientation/consciousness: patient oriented x3 Limitations: no limitations HENMT Head: Yes normal to inspection and Yes atraumatic Ears: hearing grossly normal bilaterally and external ears normal General nose exam: Normal external nose present, no nasal discharge noted and no epistaxis Face and sinus: Yes normal facial exam, No abrasion and No laceration Mouth: Normal oral and palatal mucosa present, no drooling and no muffled voice Eyes General: appearance normal, both eyes and all related structures Periorbital: periorbital findings normal Eyelids: Yes eyelids normal Conjunctivae: conjunctivae normal Pupils: Equal, round and reactive pupils present EOM: EOMs intact bilaterally Neck Neck: Yes normal visual inspection, Yes full ROM and Yes no lymphadenopathy Chest Chest palpation & inspection: normal inspection of the chest Resp Effort & Inspection: normal respiratory effort and able to speak in complete sentences GI Inspection: Yes normal to inspection Neuro General: patient oriented x3 and moves all extremities Cranial nerves: Yes Equal, round and reactive pupils present Cognition (Neuro): normal cognition Extrem General: Yes normal to inspection, Yes full ROM and Yes capillary refill normal Psych Appearance: grossly normal Mental Status: mental status grossly normal Affect: normal affect Attitude: cooperative Thought process: Normal thought process present Thought content: Normal thought content present Insight: Good insight present (Psych) Medical Decision Making Medical Decision Making MDM Narrative: Patient is a 63 year old assigned female at with a history of PTSD, anxiety, migraines, DM, and GERD presenting to the emergency department today after having an outburst of anger. Patient's physical exam was unremarkable. Patient's blood work was unremarkable. Patient's urine showed no acute process. Patient was evaluated by the CARE team who recommended discharge. I explained my physical exam findings as well as all test results to the patient. I answered all questions asked by the patient. I stressed the importance of the patient taking her medication as directed (either prescribed or as the over the counter packaging recommends). I stressed the importance of the patient following up with her primary care provider. I stressed the importance of the patient returning to the emergency department immediately if her symptoms were to worsen or if she were to develop any dizziness, shortness of breath, difficulty breathing, chest pain, blurry vision, loss of vision, nausea, vomiting, abdominal pain, fever, chills, back pain, or any other complaints. Patient verbalized agreement and understanding with this treatment plan and discharge. Differential Diagnosis Differential Diagnoses: The differential diagnosis associated with the presentation includes Outburst SI HI Admission/Observation Consideration of admission/observation: Escalation of care including admission/observation considered Patient would have been admitted to the hospital had her work up had any findings where hospital admission was appropriate and her clinical presentation warranted hospital admission. Consult Healthcare Provider Management of the patient was discussed with: Behavioral Health Provider (spoke to the CARE team as noted in the MDM Rationale portion of this note.) Lab Data [facility] Lab Attestation statement: I reviewed the patient's lab results. My interpretation of these results are in the MDM Rationale portion of this note. 06/28/24 10:41 06/28/24 10:41 Labs: Lab Results 06/28/24 06/28/24 Range/Units 10:41 10:51 WBC 8.0 (4.8-10.8) X10*3/uL RBC 4.57 (4.20-5.50) X10*6/uL Hgb 13.6 (12.0-16.0) g/dl Hct 39.7 (37.0-47.0) % MCV 86.9 (80.0-98.0) fL MCH 29.8 (27.0-33.0) pg MCHC 34.3 (31.0-35.0) g/dl RDW 12.1 (11.0-16.0) % Plt Count 397 (160-400) X10*3/uL MPV 9.1 L (9.4-12.3) fL Immature Gran % (Auto) 0.5 H (0.0-0.4) % Neut % (Auto) 64.6 (45-73) % Lymph % (Auto) 24.1 (20-40) % [place] % (Auto) 8.4 (2-11) % Eos % (Auto) 1.6 (0-4) % Baso % (Auto) 0.8 (0-2) % Lymph # (Auto) 1.9 (1.2-4.9) X10*3/uL [place] # (Auto) 0.7 (0.1-1.2) X10*3/uL Eos # (Auto) 0.1 (0.0-0.4) X10*3/uL Baso # (Auto) 0.1 (0.0-0.2) X10*3/uL Abs Immat Gran (auto) 0.04 H (0.00-0.03) X10*3/uL Absolute Neuts (auto) 5.1 (2.0-8.3) x10*3/uL Absolute Nucleated RBC 0.000 (0.0-0.012) X10*3/uL Nucleated RBC % (auto) 0.0 (0.0-0.2) /100WBC Sodium 141 (135-145) mmol/L Potassium 4.1 (3.3-5.1) mmol/L Chloride 107 (96-108) mmol/L Carbon Dioxide 25 (22-29) mmol/L Anion Gap 13 (12-20) BUN 16 (9-16) mg/dL Creatinine 0.76 (0.5-1.4) mg/dL Estim Creat Clear Calc 62.3 Estimated GFR > 60 Random Glucose 165 H (60-115) mg/dL Calcium 9.0 D (8.4-10.2) mg/dL Total Bilirubin 0.5 (0.0-1.0) mg/dL AST 23 (5-31) U/L ALT 25 (0-31) U/L Alkaline Phosphatase 66 (39-117) U/L Total Protein 6.8 (6.5-8.0) g/dL Albumin 4.4 (3.5-5.0) g/dL Urine Color Dark Yellow Urine Appearance Clear Urine pH 5.5 (5.0-9.0) Ur Specific [place] 1.025 (1.005-1.025) Urine Protein 100 (2+) H (Neg-Trace) mg/dL Urine Glucose (UA) Negative (Negative) mg/dL Urine Ketones Trace (Negative) mg/dL Urine Blood Negative (Negative) Urine Nitrite Negative (Negative) Ur Leukocyte Esterase Negative (Negative) Urine RBC 0-2 (0-2) /HPF Urine WBC 0-5 (0-5) /HPF Ur Squamous Epith Cells 0-2 (0-2) /HPF Urine Bacteria None Seen (None Seen) Hyaline Casts 0-2 (0-2) /LPF Salicylates < 5.0 L (15-30) mg/dL Urine Opiates Screen Not Detected (Not Detect) Ur Buprenorphine Scrn Not Detected (Not Detect) ng/mL Ur Oxycodone Screen Not Detected (Not Detect) ng/mL Urine Methadone Screen Not Detected (Not Detect) ng/mL Urine Fentanyl Screen Not Detected (Not Detect) Acetaminophen 13 (<30) mcg/mL Ur Barbiturates Screen Not Detected (Not Detect) Ur Phencyclidine Scrn Not Detected (Not Detect) Ur Amphetamines Screen Not Detected (Not Detect) U Benzodiazepines Scrn Not Detected (Not Detect) Urine Cocaine Screen Not Detected (Not Detect) U Marijuana (THC) Screen Not Detected (Not Detect) Ethyl Alcohol < 10 mg/dL COVID-19 ([place]) Negative (Negative) COVID-19 Clin Com See Note Independent Historian Clinical information obtained from an independent historian. History obtained from or confirmed by: EMS (EMS provided additional history and confirmed the history provided by the patient.) Discharge Plan Discharge Clinical Impression: Outbursts of anger Patient Disposition: Home, Self-Care Additional Instructions: Follow up with your primary care provider. Return to the emergency department immediately if you develop any thoughts of hurting yourself, thoughts of hurting others, dizziness, shortness of breath, difficulty breathing, chest pain, blurry vision, loss of vision, nausea, vomiting, abdominal pain, fever, chills, back pain, or any other complaints. [facility] ([facility]) at [facility]: [address] [place] [address] [phone] Walk in hours from 10am - 12pm Open from 10am - 12pm [facility] Crisis Services: [address] [place] [address] Walk in hours from 10am - 12pm Open 08/03 Behavioral health Network: [address] [place] [id number] [address] [place] [id number] Hours: M-F 8am to 8pm Wednesday and Wednesday 9am to 5pm Prescriptions: No Action metformin 500 mg tablet 1 tab PO BID lamotrigine 200 mg tablet 1 tab PO BEDTIME lamotrigine 25 mg tablet 1 tab PO BID dicyclomine 20 mg tablet 1 tab PO TID pantoprazole 40 mg tablet,delayed release (DR/EC) 1 tab PO DAILY Aimovig Autoinjector 70 mg/mL auto-injector 1 ml subcut Q4W levothyroxine 88 mcg tablet 88 mcg PO DAILY atorvastatin 20 mg tablet 20 mg PO BEDTIME fluticasone propionate 50 mcg/actuation spray,suspension 1 spray intranasal BID buspirone 15 mg tablet 15 mg PO BID losartan 50 mg tablet 50 mg PO DAILY sucralfate 1 gram tablet 1 g PO QID riboflavin (vitamin B2) 400 mg tablet 400 mg PO DAILY Referrals: [facility] [Provider Group] (Call to establish and follow up with a primary care provider. If you already have a primary care provider, please follow up with them.) [facility] [Provider Group] (Call to establish and follow up with a primary care provider. If you already have a primary care provider, please follow up with them.) [facility] [Provider Group] (Call to establish and follow up with a primary care provider. If you already have a primary care provider, please follow up with them.) Interventions: [place]-Suicide Risk Severity Scale Last Done: 06/28/24 11:48 ED Discharge Assessment Last Done: 06/28/24 14:16 Discharge Date/Time: 06/28/24 14:16 Print Language: Ukrainian
[2024-06-28 09:27] VITALS: BP 180/100; PULSE 90; O2SAT 98
[2024-06-28 09:50] VITALS: BP 173/88; PULSE 105; RESP 16; TEMP 36.9; O2SAT 94; BMI 30.2
[2024-06-28 10:46] LABS: MANUAL DIFF FLAG NO
[2024-06-28 10:51] LABS: Basophils Absolute Auto 0.1 X10*3/uL (0.0-0.2); Basophils Percent Auto 0.8 % (0-2); Eosinophils Absolute Auto 0.1 X10*3/uL (0.0-0.4); Eosinophils Percent Auto 1.6 % (0-4); Hematocrit 39.7 % (37.0-47.0); Hemoglobin 13.6 g/dl (12.0-16.0); Imm Gran Abs Auto 0.04 X10*3/uL (0.00-0.03); Imm Gran Pct Auto 0.5 % (0.0-0.4); Lymphocytes Absolute Auto 1.9 X10*3/uL (1.2-4.9); Lymphocytes Percent Auto 24.1 % (20-40); Mean Corpuscular HGB Conc 34.3 g/dl (31.0-35.0); Mean Corpuscular Hemoglobin 29.8 pg (27.0-33.0); Mean Corpuscular Volume 86.9 fL (80.0-98.0); Mean Platelet Volume 9.1 fL (9.4-12.3); Monocytes Absolute Auto 0.7 X10*3/uL (0.1-1.2); Monocytes Percent Auto 8.4 % (2-11); Neutrophils Absolute Auto 5.1 x10*3/uL (2.0-8.3); Neutrophils Percent Auto 64.6 % (45-73); Platelet Count 397 X10*3/uL (160-400); Red Blood Count 4.57 X10*6/uL (4.20-5.50); Red Cell Distribution Width 12.1 % (11.0-16.0)
[2024-06-28 11:02] LABS: Acetaminophen LAB 13 mcg/mL (<30); Salicylate < 5.0 mg/dL (15-30)
[2024-06-28 11:03] LABS: Alanine Aminotransferase 25 U/L (0-31); Albumin Level 4.4 g/dL (3.5-5.0); Alkaline Phosphatase 66 U/L (39-117); Anion Gap 13 (12-20); Aspartate Amino Transferase 23 U/L (5-31); Bilirubin Total 0.5 mg/dL (0.0-1.0); Blood Urea Nitrogen 16 mg/dL (9-16); Carbon Dioxide 25 mmol/L (22-29); Chloride 107 mmol/L (96-108); Creatinine Clr Calc Pharmacy 62.3; Estimated Glomerular Filt Rate > 60; Ethanol < 10 mg/dL; Glucose Random 165 mg/dL (60-115); Potassium 4.1 mmol/L (3.3-5.1); Sodium 141 mmol/L (135-145); Total Protein 6.8 g/dL (6.5-8.0)
[2024-06-28 11:09] LABS: Appearance Urine Clear; Color Urine Dark Yellow; Glucose Urine UA Negative (Negative); Leukocyte Esterase Urine Negative (Negative); Nitrite Urine Negative (Negative); PH 5.5 (5.0-9.0); Specific Gravity - Urine 1.025 (1.005-1.025); UMIC TRIGGER UA YES; Urine Blood Negative (Negative); Urine Ketones Trace mg/dL (Negative); Urine Protein 100 (2+) mg/dL (Neg-Trace)
[2024-06-28 11:12] LABS: Bacteria Urine None Seen (None Seen); Hyaline Casts Urine 0-2 /LPF (0-2); RBC Urine 0-2 /HPF (0-2); Squamous Epithelial Cell Urine 0-2 /HPF (0-2); WBC Urine 0-5 /HPF (0-5)
[2024-06-28 11:21] LABS: COVID-19 Test Negative (Negative); IDNOW Serial# 08D9AD1C
[2024-06-28 11:23] LABS: Amphetamine Screen Urine Not Detected (Not Detect); Barbiturates, Urine Not Detected (Not Detect); Benzodiazepines Screen Urine Not Detected (Not Detect); Buprenorphine Scr Not Detected (Not Detect); Cannabinoid Screen Urine Not Detected (Not Detect); Cocaine Screen Urine Not Detected (Not Detect); Fentanyl, urine Not Detected (Not Detect); Methadone Screen, Urine Not Detected (Not Detect); Opiate Screen Urine Not Detected (Not Detect); Oxycodone Screen Urine Not Detected (Not Detect); Phencyclidine Screen Urine Not Detected (Not Detect)
[2024-06-28 14:16] VITALS: BP 173/88; PULSE 105; RESP 16; TEMP 36.9; O2SAT 94
== END 2024-06-28 14:16 | disposition home or self-care (01) ==
PROVIDERS: Physician Assistant Medical; Emergency Provider Student in an Organized Health Care Education/Training Program
DX: R45.4 Irritability and anger (principal); Z79.899 Other long term (current) drug therapy; Z11.52 Encounter for screening for COVID-19; Z51.81 Encounter for therapeutic drug level monitoring
CPT/HCPCS: 80053; 80143; 80179; 80307; 81001; 85025; 87635; 99284; S9485

== ENCOUNTER 2025-04-18 09:45 | Outpatient (REF) | payer OTHER, SELFPAY ==
--- NOTE | ~2025-04-18 | XR_ITS ---
EXAMINATION: XR FOOT, LEFT CLINICAL INFORMATION: left foot pain COMPARISON: None available. TECHNIQUE: AP, lateral, and oblique views of the left foot. FINDINGS: There is normal bone mineral density. There is hallux valgus deformity. Small marginal sites are present along the lateral aspect of the first metatarsophalangeal joint. No other abnormalities are evident. XR/XR foot LT min 3V IMPRESSION: Hallux valgus deformity with mild osteoarthritis involving the first MTP joint. Electronically signed by: Dmitriy Swanson MD 04/18/2025 10:30 AM EDT
--- OUTSIDE RECORDS SUMMARY | 2025-04-18 10:55 | XMS_ITS | Patient Health Record ---
Author Organization [facility] Address [address] [place] [id number] Care Team Providers Care Drug Counselor Name Role Phone Estefania Finnegan Primary Care Provider Unavailab Morgan Meza Jr Unavailable Allergies Allergen (clinical drug ingredient) Drug/Non Drug Allergy documented on EMR Reaction Allergy Type Onset Date Status Non-steroidal anti-inflammatory agent (FN) NSAIDS (uncoded) Unknown Allergy Active Reason For Referral No Information Medications Medication SIG (Take, Route, Frequency, Duration) Notes Start Date End Date Status metFORMIN HCl 500 MG 1 tablet with meals Orally bid Active Simvastatin 40 MG 1 tablet in the even ing Orally Once a day Active Levothyroxine Sodium 100 MCG 1 tablet on an empty stomach in the morning Orally qod Active Dicyclomine HCl 20 MG 1 tablet Orally up to three times a day with meals for 30 days Active Riboflavin 400 MG 1 capsule Orally Onc e a day for 30 day(s) Active Pantoprazole Sodium 40 MG 1 tablet Orall y Once a day for 30 Active Probiotic - as directed Orally Active Vitamin D-3 5000 UNIT/ML 1 ml under the tongue Sublingual Once a day for 30 day(s) Active Prazosin HCl 1 MG 1 capsule at bedtime Orally Once a day for 30 day(s) Active Magnesium 500 MG 1 tablet with a meal Orally Once a day for 30 day(s) Active Gabapentin 100 MG 1 capsule Orally Onc e a day for 30 day(s) Active Aspir-81 81 MG 1 tablet Orally Once a day Active Nurtec 75 MG 1 tablet on the tong ue and allow to dissolve as needed Orally Once a day for 30 day(s) Active Tylenol 325 MG 2 tablets as needed Orally every 6 hrs Active hydrALAZINE HCl 10 MG 1 tablet with food Orally Four times a day for 30 day(s) Active Lactase Enzyme 3000 UNIT 1 Orally prn Active Aimovig Active lamoTRIgine 200 MG 100mg and 12.5 mg Or ally as directed Active Immunizations Vaccine Route Administration Date Status Comme nts Flu vaccine no Preserv 3 and > Unknown 08/25/2017 Admin istered Influenza Unknown 06/17/2018 Administered Influenza Unknown 05/16/2020 Administered Social History Tobacco Use: Social History Observation Description Date Details (start date - stop date) Current Smoker NA - NA Tobacco Use/Smoking Question Answer Notes Patient is a current smoker How often do you smoke cigarettes? every day How many cigarettes a day do you smoke? 11-20 How soon after you wake up d o you smoke your first cigarette? 6-30 minutes Are you interested in quitting? Thinking about q uitting Alcohol Screen Question Answer Notes Did you have a drink containing alcohol in the p ast year? No Points 0 Interpretation Negative Problems Problem Type SNOMED Code ICD Code Onset Dates Problem Status W/U Status Risk Notes Problem 898945167 Colon cancer screening (Z12.11) Active confirmed Problem 304126757 Gastroesophageal reflux disease without esophagitis (K21.9) Active confirmed Problem Gastroesophageal reflux disease (666994120) GERD (gastroesophageal reflux disease) (K21.9) Active confirmed Problem 88768262 Diarrhea, unspecified type (R19.7) Active confirmed Problem 53666305 Irritable bowel syndrome, unspecified type (K58.9) Active confirmed Problem 118662813 Vomiting, intractability of vomiting not specified, presence of nausea not specified, unspecified vomiting type (R11.10) Active confirmed Problem 398131982 Gastroesophageal reflux disease, unspecified whether esophagitis present (K21.9) Active confirmed Plan Of Treatment Pending Test Test Name Order Date STOOL WBC 09/29/2017 OVA & PARASITES (O&P) 09/29/2017 CULTURE, STOOL 09/29/2017 Future Test Test Name Order Date COLONOSCOPY 05/03/2019 UPPER GI ENDOSCOPY 02/27/2021 Insurance Providers Payer Name Payer Address Payer Phone Subscriber Number Group Number Insured Name Patient Relationship to Insured Coverage Start Date Coverage End Date MEDICARE OF [place] [address] [place] [address] [id number] [place] Self - patient is the insured [facility] [address] [place] [address] [id number] DEDRA VEGA Self - patient is the insured Medical (General) History Medical History History ICD Code PTSD diabetes mellitus anxiety disc disease bursitis lactose intolerance hypothyroidism hyperlipidemia migraines QTC Surgical History Surgery Date(Month/Year) section cataract-lens implants--both eyes rotator cuff tear repair left 02/11/2018
--- OUTSIDE RECORDS SUMMARY | 2025-04-18 10:55 | XMS_ITS | Clinical Summary ---
Author Organization [facility] Address [address] [place] [address] Phone Care Team Providers Care Agricultural Specialist Name Role Phone Coco Matute Primary Care Provider [phone] Allergies Active Allergy Reactions Criticality Noted Date Comments Diphenhydramine Hcl 10/24/2024 Lisinopril 10/24/2024 Nsaids (Non-Steroidal Anti-I nflammatory Drug) 10/24/2024 Ondansetron Hcl 10/24/2024 Medications simvastatin (ZOCOR) 40 mg tablet TAKE ONE TABLET BY MOUTH AT BEDTIME 7 Active omeprazole (PRILOSEC) 20 mg tablet,delayed release (DR/EC) Take 1 Tab by mouth 2 times daily. 7 Active levothyroxine (SYNTHROID, LEVOTHROID) 100 mcg tablet Take 1 Tab by mouth daily. Active diclofenac (Voltaren) 1 % topical gel Place 2 Doses onto the skin 2 times daily. Active acetaminophen (TYLENOL) 500 mg tablet Take 2 Tabs by mouth 3 times daily as needed for Pain. Active suvorexant (Belsomra) 5 mg tablet Take 1 Tab by mouth at bedtime. Active tiZANidine (ZANAFLEX) 4 mg tablet Take 1 Tab by mouth every 8 hours as needed for Muscle spasms. 7 Active blood sugar diagnostic (FreeStyle Lite Strips) test strip Use to test blood sugars TID before meals 7 Active FREESTYLE LANCETS MISC Use to test blood sugars TID before meals 7 Active alcohol swabs pads, medicated Use to test blood sugars TID before meals 7 Active nystatin (Nystop) 100,000 unit/gram powder Apply 1 Bottle topically 2 times daily. 7 Active nicotine (NICODERM CQ) 14 mg/[address] 1 Patch onto the skin every 24 hours for 30 days. 7 Active suvorexant (Belsomra) 10 mg tablet Take 5 mg by mouth at bedtime. 7 Active lactase (LACTAID) 3,000 unit tablet Take 1 Tab by mouth 3 times daily (with meals). 7 Active lamoTRIgine (LaMICtal) 200 mg tablet Take 200 mg by mouth at bedtime. Active aspirin 81 mg EC tablet Take 81 mg by mouth daily. Active Active Problems Problem Noted Date Diagnosed Date Polysubstance abuse ([facility] V24, [facility] V28) 0 04/26/2017 Overview (09/11/2024): History of crack cocaine, going to last use 2012 Neural hearing loss, bilateral 04/14/2017 Overview (09/11/2024): Last ear exam 04/12/2017 Insomnia 04/07/2017 Obstructive sleep apnea 01/20/2017 Overview (09/11/2024): Sleep study 01/2017, Non compliant with CPAP Cervical radicular pain 01/18/2017 Overview (09/11/2024): MRI from [facility] on 01/16/2017 with DJD PTSD (post-traumatic stress disorder) 11/25/2016 Obesity (BMI 30-39.9) 08/19/2016 Depression 05/08/2016 Overview (09/11/2024): With suicidal ideation, F/u CHD, Emre Leyva DM type 2 (diabetes mellitus , type 2) ([facility] V24, [facility] V28) 05/08/2016 GERD (gastroesophageal reflux disease) 6 Hyperlipidemia 05/08/2016 Hypothyroidism 05/08/2016 IBS (irritable bowel syndrome) 05/08/2016 Lactose intolerance 05/08/2016 Encounters Date Type Department Care Team Description 01/26/2025 9:30 AM EDT Office Visit Orthopedic Surgery [facility] [address] [facility] [address] [place] [phone] Gabriela Alvarado MD Greater trochanteric pain syndrome of right lower extremity (Primary Dx) from Last 3 Months Immunizations Name Administration Dates Next Due Influenza trivalent, with pr eservative (Fluzone; Afluria) 6mo and older 05/08/2016 Pneumococcal conjugate 13 va lent (Prevnar 13, PCV13) 2mo and older 08/19/2016 Social History Tobacco Use Types Packs/Day Years Used Date Smoking Tobacco: Never Assessed Comments Unknown Sex and Gender Information Value Date Recorded Sex Assigned at Female 11/30/2024 11:55 AM EDT Legal Sex Female 12:44 PM EST Gender Identity Female 11/30/2024 11:55 AM EDT Sexual Orientation Straight 11/30/2024 11 :55 AM EDT Last Filed Vital Signs Vital Sign Reading Time Taken Comments Blood Pressure - - Pulse - - Temperature - - Respiratory Rate - - Oxygen Saturation - - Inhaled Oxygen Concentration - - Weight 72.6 kg (160 lb) 10/24/2024 9:11 AM EDT Height 149.9 cm (4' 11.02 ) 01/26/2025 9:13 AM E DT Body Mass Index 32.32 10/24/2024 9:11 AM EDT Plan of Treatment Upcoming Encounters Date Type Department Care Team (Late st Contact Info) Description 05/01/2025 10:00 AM EDT Office Visit [facility] [address] [facility] [address] [place] [phone] Gabriela Alvarado MD [address] [address] 05/29/2025 3:00 PM EDT Office Visit [facility] [address] [phone] Robert Dominguez DPM 175 [facility] [address] [place] [address] 10/24/2025 8:15 AM EDT Office Visit Orthopedic Surgery - [place] [address] [facility] [address] [place] [phone] Robert Dominguez, CRISTI 175 [facility] [address] [place] [address] Health Maintenance Due Date Last Done Comments Diabetes: Annual Foot Exam 1968 Diabetes: Annual Retina Eye Exam 1968 Hepatitis A Vaccines (1 of 2 - Risk 2-dose series) 1977 Hepatitis B Vaccines (1 of 3 - Risk 3-dose series) 2018 RSV Immunization Adult Patients (1 - Risk 60-74 years 1-dose series) 2018 Breast Cancer Screening 11/26/2018 11/26/2016 Colorectal Cancer Screening: Colonoscopy 07/14/2022 Medicare Annual Wellness Visit 07/14/2022 Social Influencers of Health Screening 07/14/2022 Pneumococcal Vaccine: 50+ Years (3 of 3 - PCV20 or PCV21) 10/11/2022 10/11/2017, 08/19/2016 Falls Risk Assessment 2023 COVID-19 Vaccine ( season) 2024 08/14/2021, 12/04/2020, 11/16/2020 Depression Screening 08/16/2024 Diabetes: Blood Sugar Control Test (HGBA1C) 12/17/2024 06/19/2024, 02/22/2017 Influenza Vaccine (#1) 2025 , 05/16/2021, 05/16/2020, Additional history exists Diabetes: Annual Urine Albumin-Creatinine Ratio (uACR) 06/19/2025 06/19/2024, 12/30/2022, 10/24/2021, Additional history exists Diabetes: Annual GFR (Glomerular Filtration Rate) 06/19/2025 06/19/2024, 09/29/2023, 12/30/2022, Additional history exists Hypertension/CHF/CAD Annual BMP Blood Test 06/19/2025 06/19/2024, 09/29/2023, 12/30/2022, Additional history exists DTaP,Tdap,and Td Vaccines (2 - Td or Tdap) 10/11/2027 10/11/2017 Cholesterol Screening (Lipid Panel) 06/19/2029 06/19/2024, 06/19/2024, 05/08/2016 Osteoporosis Screening (Bone Density Screening) 04/30/2030 04/30/2020 Hepatitis C Screening Completed 06/19/2024, 017 Zoster Vaccines Completed 10/17/2024, 05/02/2024 HIB Vaccines Aged Out No longer eligi ble based on patient's age to complete this topic HPV Vaccines Aged Out No longer eligi ble based on patient's age to complete this topic IPV Vaccines Aged Out No longer eligi ble based on patient's age to complete this topic MMR Vaccines Aged Out No longer eligi ble based on patient's age to complete this topic Meningococcal ACWY Vaccine Aged Out N o longer eligible based on patient's age to complete this topic Meningococcal B Vaccine Aged Out No l onger eligible based on patient's age to complete this topic RSV Immunization Patients Under 20 months Aged Out No longer eligible based on patient's age to complete this topic Varicella Vaccines Aged Out No longer eligible based on patient's age to complete this topic Procedures Procedure Name Priority Date/Time Associated Diagnosis Comments [facility] DEXA AXIAL SKELETON Routine 04/30/2020 2:44 PM EDT Encounter for screening for osteoporosis ANNUAL BMP BLOOD TEST Routine 03/24/2017 HEMOGLOBIN A1C Routine 02/22/2017 SCR MAMMO BI INCL CAD Routine 11/26/2016 10:29 AM EDT Encounter for other screening for malignant neoplasm of breast HEPATITIS C SCREENING Routine 10/30/2016 URINE ALBUMIN CREATININE RATIO Routine 05/08/2016 LIPID PANEL Routine 05/08/2016 from Last 3 Months or Most Recently Relevant to Health Maintenance Results * [facility] DEXA AXIAL SKELETON (04/30/2020 2:44 PM EDT) Anatomical Region Laterality Modality Mammography 04/30/2020 1:00 PM EDT Narrative 04/30/2020 2:44 PM EDT [facility] Diagnostic Imaging Department [address] [place] [id number] Patient: TIANNA BEATTY Carlos Enrique /Age/Sex: 1960 - 59 - F Unit#: [id number] Location/Status: SPDIMA/REG CLI Mnem[facility] Ordering Physician: LEANN RED STATION MECHANIC HELPER Temitope Dexa Axial Skeleton - 04/30/201329 HISTORY: The patient is a 59-year-old postmenopausal female with clinical concern for metabolic bone disease. FINDINGS: Dual energy x-ray absorptiometry of the lumbar spine and femurs is performed. The mean bone mineral density at L1-L4 is 1.299 gm/cm2 which is 110% of that of young normals and 128% of that of age matched controls. This yields a T-score of 1.0 and a Z-score of 2.3 and there is therefore no evidence of osteoporosis or osteopenia here. The mean bone mineral density of the femurs bilaterally is 1.095 gm/cm2 which is 109% of that of young normals and 125% of that of age matched controls. This yields a T-score of 0.7 and a Z-score of 1.7 and there is therefore no evidence of osteoporosis or osteopenia here. IMPRESSION: 1. There is no evidence of osteoporosis or osteopenia. 2. FRAX analysis yields a 10-year probability of major osteoporotic fracture of 9.6% and a 10-year probability of hip fracture of 0.4%. Code 59104 Dictating Physician: RAKAN CHAVES MD Electronically Signed by: RAKAN CHAVES MD Dic Date/Time: 04/30/20 144 Sign date/Time: 04/30/20 144 Procedure Note Rakan Chaves MD - 08/05/2022 [facility] Diagnostic Imaging Department [address] [place], [place] [id number] Patient: TIANNA BEATTY Carlos Enrique [place]./Age/Sex: 1960 - 59 - F Unit#: [id number] [facility] Ordering Physician: LEANN RED STATION MECHANIC HELPER Temitope Dexa Axial Skeleton - 04/30/20 - 0 HISTORY: The patient is a 59-year-old postmenopausal female withclinical concern for metabolic bone disease. FINDINGS: Dual energy x-ray absorptiometry of the lumbar spine and femursis performed. The mean bone mineral density at L1-L4 is 1.299 gm/cm2 which is110% of that of young normals and 128% of that of age matched controls. Thisyields a T-score of 1.0 and a Z-score of 2.3 and there is therefore no evidenceof osteoporosis or osteopenia here. The mean bone mineral density of the femurs bilaterally is 1.095 gm/cg1mkvvu is 109% of that of young normals and 125% of that of age matched controls.This yields a T-score of 0.7 and a Z-score of 1.7 and there is therefore noevidence of osteoporosis or osteopenia here. IMPRESSION: 1. There is no evidence of osteoporosis or osteopenia. 2. FRAX analysis yields a 10-year probability of major osteoporoticfracture of 9.6% and a 10-year probability of hip fracture of 0.4%. Code 42150 Dictating Physician: RAKAN CHAVES MD Electronically Signed by: RAKAN CHAVES MD Dic Date/Time: 04/30/20 1443 Sign date/Time: 04/30/20 1444 Leann Sivan STATION MECHANIC HELPER IMG BI PROCEDURES Final Resul t * Annual BMP Blood Test (03/24/2017) Pathologist [facility] Annual BMP Blood Test abstracted Historical Provider HEALTH MAINTENANCE Final Result * (ABNORMAL) Hemoglobin A1c (02/22/2017) [facility] Hemoglobin A1C 8.8(A) 4.0 - 6.0 % Blood Venous blood specimen / Unknown Historical Provider LAB BLOOD ORDERABLES Mayra l Result * SCR MAMMO BI INCL CAD (11/26/2016 10:29 AM EDT) Anatomical Region Laterality Modality Radiographic Yadi ging 11/19/2016 11:3 5 AM EDT Narrative 11/26/2016 11:29 AM EDT This is a summary report. The complete report is available in the patient's medical record. If you cannot access the medical record, please contact the sending organization for a detailed fax or copy. Full field digital screening mammography, reviewed with CAD and compared to previous. The breasts are composed of fatty and fibroglandular tissue. No suspicious mass, architectural distortion or suspicious calcifications are identified. IMPRESSION: : No mammographic evidence of malignancy. BIRADS 1-Negative; N. 5 year breast cancer risk assessment 1.3% Lifetime breast cancer risk assessment 7.4% Breast cancer risk category Low (<15%) Procedure Note Bianka Whitfield MD - 09/17/2023 This is a summary report. The complete report is available in thepatient's medical record. If you cannot access the medical record, pleasecontact the sending organization for a detailed fax or copy. Full field digital screening mammography, reviewed with CAD and comparedto previous. The breasts are composed of fatty and fibroglandular tissue.No suspicious mass, architectural distortion or suspicious calcificationsare identified. IMPRESSION: : No mammographic evidence of malignancy. BIRADS 1-Negative; N. 5 year breast cancer risk assessment 1.3% Lifetime breast cancer risk assessment 7.4% Breast cancer risk category Low (<15%) Kamila Mclean MD IMG XR PROCEDURES Final Resu lt * Hepatitis C Screening (10/30/2016) Pathologist [facility] Hepatitis C Screening abstracted Result [facility] Provider HEALTH MAINTENANCE Final Result * Urine Albumin Creatinine Ratio (05/08/2016) Pathologist [facility] Urine Albumin Creatinine Ratio abstracted Result [facility] Provider [facility] MAINTENANCE Final Result * (ABNORMAL) Lipid panel (05/08/2016) [facility] LDL/HDL Ratio 4 0 - 4 Triglycerides 233(A) 0 - 150 mg/dL Cholesterol 217(A) 0 - 200 mg/dL HDL 59 >=40 mg/dL LDL Cholesterol 112(A) 0 - 100 mg/dL Blood Venous blood specimen / Unknown Result [facility] Provider LAB BLOOD ORDERABLES Mayra l Result from Last 3 Months or Most Recently Relevant to Health Maintenance Insurance [id number] [id number] [facility] [employer] Member Subscriber Plan / Payer (Ef fective 2023-Present) Name:Tianna Beatty Relation to Subscriber:Self Name:Tianna Beatty Payer ID:[id number] Group ID:Not on file Type:Not on file [facility] [address] [facility] [place] [address] Advance Directives Documents on File Type Date Recorded Patient Hydrometer Calibrator Expl anation Health Care Decision (hx) 10/25/2013 AD TRAN DIRECTIVE Health Care Decision (hx) 10/25/2013 AD TRAN DIRECTIVE Health Care Decision (hx) 10/25/2013 AD TRAN DIRECTIVE Health Care Decision (hx) 10/25/2013 AD TRAN DIRECTIVE Health Care Decision (hx) 10/25/2013 AD TRAN DIRECTIVE Health Care Decision (hx) 10/11/2013 AD TRAN DIRECTIVE Health Care Decision (hx) 10/11/2013 AD TRAN DIRECTIVE Health Care Decision (hx) 10/11/2013 AD TRAN DIRECTIVE Health Care Decision (hx) 10/11/2013 AD TRAN DIRECTIVE Health Care Decision (hx) 10/11/2013 AD TRAN DIRECTIVE Care Teams Agricultural Specialist Relationship Specialty Start Date End Date Coco Matute PA [address] [place] [id number] PCP - General 09/01/24
--- OUTSIDE RECORDS SUMMARY | 2025-04-18 10:55 | XMS_ITS | Clinical Summary ---
Author Organization [facility] Address [address] [place] [address] [place] [phone] Phone Care Team Providers Care Lap Hand Tool Name Role Phone Nathan Moore Unavailable Fatmata Colin MD Unavailable [phone] Radha Leggett OD Unavailable Unavailable Morgan Grajeda MD Unavailable Millicent Ramsey Primary Care Provider [phone] Allergies Active Allergy Reactions Criticality Noted Date Comments Diphenhydramine 11/20/2022 Lidocaine Itching 03/24/2021 Pt. Reports not being able to use lidocaine patch. Lisinopril Cough Low 07/16/2023 Nsaids (Non-Steroidal Anti-Inflammatory Drug) Other (See Comments) High 07/17/2019 QT prolongation Medications Lactobacillus acidophilus (PROBIOTIC ORAL) Take by mouth daily. Active nystatin (NYSTOP) powder Apply 1 Bottle topically as needed. 01/05/20 17 Active FREESTYLE LITE METER meter kitIndications:Typ e 2 diabetes mellitus with hyperglycemia Use kit three times daily as directed. 1 each 1 07/29/20 19 Active cholecalciferol (VITAMIN D3) 2,000 unit capsule Take by mouth daily. Active mag hydrox/aluminum hyd/simeth (ANTACID M ORAL) Take by mouth as needed. Active Medication-Free TextIndications:st op pain roll on, as needed Indications: stop pain roll on, as needed Active acetaminophen (TYLENOL) 500 MG tablet Take 500 mg by mouth every 6 (six) hours as needed for pain (specific location in comments). Active vit A/vit C/vit E/zinc/copper (PRESERVISION AREDS ORAL) Take by mouth. Act sly lancets (FREESTYLE) 28 gauge MiscIndications:Ty pe 2 diabetes mellitus with hyperglycemia 1 each by See Administration Instructions route 3 (three) times a day before meals. Dx: E11.65 Type 2 DM 100 each 2 11/06/19 Active lamoTRIgine (LAMICTAL) 100 MG IMMEDIATE release tablet Take 200 mg by mouth nightly at bedtime. 05/24/20 Active MELATONIN ORAL Take 4 mg by mouth daily. Active acetaminophen/diph enhydramine (TYLENOL PM EXTRA STRENGTH ORAL) Take 1 tablet by mouth nightly at bedtime. Active albuterol 90 mcg/actuation inhalerIndications :Chronic obstructive pulmonary disease Inhale 2 puffs into the lungs every 4 (four) hours as needed for wheezing. 18 g 1 06/29/20 Active metFORMIN (GLUCOPHAGE) 500 MG tabletIndications: Type 2 diabetes mellitus with hyperglycemia Take 1 tablet (500 mg total) by mouth 2 (two) times a day with meals. 180 tablet 3 07/07/20 23 Active FREESTYLE LITE Strp stripsIndications: Type 2 diabetes mellitus with hyperglycemia, without long-term current use of insulin 1 each by See Administration Instructions route 3 (three) times a day before meals. 100 strip 2 08/02/20 Active busPIRone (BUSPAR) 7.5 MG tablet Take 1 tablet by mouth 2 (two) times a day. 09/20/19 24 Active dulaglutide (TRULICITY) 1.5 mg/0.5 mL subcutaneous injection Inject 0.5 mL (1.5 mg total) under the skin every 7 days. 2 mL 5 10/01/19 24 Active atorvastatin (LIPITOR) 20 MG tabletIndications: Mixed hyperlipidemia Take 1 tablet (20 mg total) by mouth nightly at bedtime. 90 tablet 3 10/01/19 24 Active levothyroxine (SYNTHROID, LEVOTHROID) 100 MCG tabletIndications: Hypothyroid Take 1 tablet (100 mcg total) by mouth every other day. 45 tablet 6 10/01/19 24 Active levothyroxine (SYNTHROID, LEVOTHROID) 88 MCG tabletIndications: Hypothyroid Take 1 tablet (88 mcg total) by mouth every other day. 45 tablet 6 10/01/19 24 Active riboflavin, vitamin B2, 400 mg Tab Take 1 tablet (400 mg total) by mouth daily. 90 tablet 3 10/06/19 24 Active pantoprazole (PROTONIX) 40 MG tabletIndications: Gastroesophageal reflux disease Take 1 tablet (40 mg total) by mouth daily. 90 tablet 3 10/06/19 24 Active sucralfate (CARAFATE) 1 gram tablet Take 1 tablet (1 g total) by mouth 4 (four) times a day. 360 tablet 3 10/06/19 24 Active losartan (COZAAR) 50 MG tabletIndications: Essential hypertension Take 1 tablet (50 mg total) by mouth daily. 90 tablet 3 10/06/19 24 Active lactase (DAIRY-AID) 3,000 unit tablet Take 1 tablet (3,000 Units total) by mouth 4 (four) times a day. 120 tablet 1 10/06/19 24 Active dulaglutide (TRULICITY) 0.75 mg/0.5 mL subcutaneous injectionIndicatio ns:Type 2 diabetes mellitus without complication, without long-term current use of insulin Inject 0.5 mL (0.75 mg total) under the skin every 7 days. 2 mL 4 10/07/19 24 Active dicyclomine (BENTYL) 20 mg tablet Take 1 tablet (20 mg total) by mouth 3 (three) times a day with meals. 90 tablet 1 01/21/20 24 Active ubrogepant (UBRELVY) 100 mg tablet 1 pill once a day as needed for migraine, can repeat in 2 hours if needed, max dose 2 pills a day 16 tablet 5 02/07/20 24 Active rizatriptan (MAXALT) 10 MG tablet Take half a pill to 1 pill as needed for migraine, May repeat in 2 hours if needed; max 2 pills a day; limit use to 2d a week 12 tablet 3 06/22/20 24 Active galcanezumab-gnlm (EMGALITY PEN) 120 mg/mL subcutaneous injectionIndicatio ns:migraine prevention Inject 1 mL (120 mg total) under the skin every 28 days. Indications: migraine prevention 1 mL 5 06/26/20 24 Active Active Problems Problem Noted Date Diagnosed Date Essential hypertension 06/30/2023 Bilateral leg pain 11/20/2022 Assessment & Plan (11/20/2022 8:33 AM EDT): With the oxycodone being tapered off that was prescribed for the shoulder surgery this appears to be some withdrawal pain that the patient is having without all the systemic withdrawals. This is imposed on deconditioning due to the shoulder surgery. Patient will stay with Tylenol 1 g p.o. 3 times daily as needed for pain and will avoid nonsteroidals due to a QTc prolongation effect of it. Recommending to the patient's to slowly improve conditioning including short walks then longer walks scheduled throughout the day for the next few weeks. We could order some physical therapy for her if she needed it. Chronic obstructive pulmonary disease 08/27/2022 Suprapubic pain 07/05/2022 Assessment & Plan (07/05/2022 4:32 PM EST): Await u/a. Tianna is not ready for a pelvic exam yet; she will call when comfortable with a SENIOR DATA DEVELOPER exam. Migraine without aura and wi thout status migrainosus, not intractable 07/05/2022 Assessment & Plan (07/05/2022 4:34 PM EST): Restart Aimovig. Placing referral for [facility] Neurology. 1st MTP arthritis 07/05/2022 Assessment & Plan (07/05/2022 4:37 PM EST): Ongoing pain, unlikely to be gout based upon presentation. Recommend shoes with good arch support. Consider xray if symptoms persist. Hot flushes, perimenopausal 07/05/2022 Assessment & Plan (07/05/2022 4:39 PM EST): Reviewed nonpharmacologic measures to help manage flushes. If persistent, consider additional workup. Abdominal bloating 04/17/2021 Lumbosacral radiculopathy 03/26/2021 Disorder of sacrum 01/28/2021 Cervical facet joint syndrome 01/28/2021 Assessment & Plan (01/06/2023 4:44 AM EDT): Consider imaging of cervical spine after EMG. No recent xray Cervical radiculitis 01/28/2021 Ptosis of left eyelid 09/03/2020 Irritable bowel syndrome with diarrhea 9 Gastroesophageal reflux disease 07/17/2019 Lactose intolerance 07/17/2019 Mixed hyperlipidemia 07/17/2019 Assessment & Plan (12/31/2022 10:44 AM EDT): Discussed goal LDL with T2DM. She will try atorvastatin 20 mg nightly and recheck lipids and LFTs in 3 mo. Assessment & Plan (07/05/2022 4:33 PM EST): Stable on simvastatin. Recommend continuing low cholesterol diet Type 2 diabetes mellitus wit hout complication, without long-term current use of insulin 07/17/2019 Assessment & Plan (12/31/2022 10:45 AM EDT): A1c 7.5%, Tianna is motivated to make dietary changes, start walking now that the weather is nicer. Assessment & Plan (07/05/2022 4:33 PM EST): Stable on current medication regimen. Assessment & Plan (04/29/2020 5:47 AM EDT): Stable, A1c will be due at next visit. Hypothyroid 07/17/2019 Assessment & Plan (07/05/2022 4:33 PM EST): Continue current dosing of levothyroxine. History of substance abuse 07/17/2019 Overview (06/29/2023): Smoked crack cocaine up until 2011, attends [facility] Anxiety and depression 07/17/2019 Assessment & Plan (07/05/2022 4:38 PM EST): Continuing with current therapist while awaiting EMDR provider. Given QT prolongation, she is hesitant to try new medications. She will continue to work with her prescriber. Assessment & Plan (04/29/2020 5:48 AM EDT): Stable. Continue to work with [facility] regarding housing options. Vitamin D deficiency 07/17/2019 Pulmonary nodules 07/17/2019 Overview (07/05/2022): Bilateral. Last LDCT 03/2022. Assessment & Plan (07/05/2022 4:40 PM EST): Continue annual screening. PTSD (post-traumatic stress disorder) 07/17/2019 Anxiety 05/16/2013 Hepatic steatosis QT prolongation Hepatic hemangioma Resolved Problems Problem Noted Date Diagnosed Date Resolved Date Tobacco abuse 07/17/2019 01/06/2023 Assessment & Plan (07/05/2022 4:32 PM EST): Supportive counseling re: reduction in number of cigarettes. Assessment & Plan (04/29/2020 5:48 AM EDT): Continues to smoke with current stressful situation. Encouraged total cessation. Encounters Date Type Department Care Team Description 02/20/2025 Telephone [facility] [place] [address] Shirley Lopez MD Medication Prior Authorization (Ubrelvy 100MG tablets/) from Last 3 Months Immunizations Immunization Administration Dates Next Due COVID-19 (Pre-06/07) Pfizer Vaccine, mRNA, PF 12/04/2020,11/16/2020 INFLUENZA, SPLIT VIRUS, TRIV ALENT W/ PRESERVATIVE IM 05/16/2020,06/17/2018,08/25/2017,05/08 Influenza Quadrivalent MDCK Preservative Free IM 05/15/2020 Influenza Quadrivalent Prese rvative Free IM 07/03/2022,05/16/2021 Influenza, Unspecified Formulation 06/14/2019, Pneumococcal conjugate PCV13 08/19/2016 Pneumococcal polysaccharide PPSV23 10/11/2017 Td (adult),2 Lf Tetanus Toxo id, PF, Adsorbed 10/11/2017 Family History Medical History Relation Comments HIV Brother 1 Thyroid disease Brother 2 Lung cancer Brother 3 Diabetes Father Stroke Father Heart disease Mother Lung cancer Mother COPD Sister 1 Gallbladder disease Sister 1 Lung cancer Sister 1 Liver disease Sister 2 Relation Status Comments Brother 1 (Age 43) Brother 2 Brother 3 Brother 4 Alive Daughter Alive mentally and phy sically challenged Father Mother (Age 48) Sister 1 Alive Sister 2 Alive Social History Tobacco Use Types Packs/Day Years Used Date Smoking Tobacco: Former Cigarettes 0.5 31.9 1 991 - 07/2022 Smokeless Tobacco: Never Tobacco Cessation:Counseling Given: Not Answered Comments:1 cigarette every 2-3 days Alcohol Use Standard Drinks/Week Comments Not Currently 0 (1 standard drink = 0.6 oz pur e alcohol) Child or Family Care Answer Date Record ed Do you have problems with on e of the following making it difficult for you to work, study, or receive health care? No 07/03/2022 Education Answer Date Recorded Are you interested in more education? Not on percy e 07/12/2024 Are you concerned about learning? Not on file 07/12/2024 No 07/12/2024 No 07/12/2024 Food Answer Date Recorded Within the past 6 months we worried whether our food would run out before we got money to buy more. Never True 07/03/2022 Within the past 6 months the food we bought just didn't last and we didn't have enough money to get more. Never True Residential Stability Answer Date Recor ded What is your housing situation today? I have tiffany snyder 07/03/2022 How many times have you move d in the past 12 months? Zero (I did not move) 07/03/2022 Paying for Meds Answer Date Recorded Do you have trouble paying for medicines? No 07/03/2022 Paying Utility Bills Answer Date Record ed Do you have trouble paying your heating or elect ricity bill? No 07/03/2022 Transportation Answer Date Recorded Has the lack of transportati on kept you from medical appointments or from getting medications? No 07/03/2022 Unemployment Answer Date Recorded Are you currently unemployed or working on a part-time or temporary basis, and looking for work? No 07/03/2022 Digital Access Answer Date Recorded No 01/05/2023 No 01/05/2023 Reliable internet access at home? Not on file 01/05/2023 Device with a working camera? Not on file Intimate Partner Violence Answer Date R ecorded Denied Basic Needs Not on file 06/29/2023 In the past 12 months have y ou been in a relationship with a person who hurts, threatens, or tries to control you? No 06/29/2023 Worried food would run out Not on file 06/29 In the past 12 months have y ou been in a relationship with a person who hurts, threatens, or tries to control you? No 06/29/2023 Comments Unknown Sex and Gender Information Value Date Recorded Sex Assigned at Female 11/14/2020 10:44 AM EDT Legal Sex Female 9:27 AM EST Gender Identity Female 11/14/2020 10:44 AM EDT Sexual Orientation Straight 08/27/2022 1: 03 PM EST Last Filed Vital Signs Vital Sign Reading Time Taken Comments Blood Pressure 132/74 10/01/2023 10:32 AM EST Pulse 79 10/01/2023 10:32 AM EST Temperature 36.8 C (98.3 F) 12/31/2022 10:21 AM EDT Respiratory Rate 16 10/01/2023 10:32 AM EST Oxygen Saturation 96% 10/01/2023 10:32 AM EST Inhaled Oxygen Concentration - - Weight 68.8 kg (151 lb 9.6 oz) 10/01/2023 10:32 AM EST Height 151.1 cm (4' 11.49 ) 10/01/2023 10:32 AM EST Body Mass Index 30.12 10/01/2023 10:32 AM EST Plan of Treatment Health Maintenance Due Date Last Done Comments SMOKING Hx and SMOKELESS TOBACCO SCREENING 1971 HEPATITIS A VACCINES (1 of 2 - Risk 2-dose series) 1977 COLOGUARD 2003 FIT TEST 2003 FOBT 2003 SIGMOIDOSCOPY 2003 VIRTUAL COLONOSCOPY 2003 ZOSTER VACCINES (1 of 2) 2008 RSV VACCINE (1 - Risk 60-74 years 1-dose series) 2018 PNEUMOCOCCAL VACCINES (50+ years) (3 of 3 - PCV20 or PCV21) 10/11/2022 10/11/2017, 08/19/2016 BLOOD PRESSURE 03/31/2024 10/01/2023 COVID-19 VACCINE ( - 2024-25 season) 2024 08/14/2021, 12/04/2020, 11/16/2020 COLONOSCOPY 08/25/2024 08/25/2019 COLORECTAL CANCER SCREENING 08/25/2024 CREATININE LEVEL 09/29/2024 09/29/2023, 01/2024, 12/30/2022, Additional history exists POTASSIUM LEVEL 09/29/2024 09/29/2023, 01/2024, 12/30/2022, Additional history exists DEPRESSION SCREENING 09/30/2024 09/30/2023, 09/30/19 24 HEMOGLOBIN A1C 12/17/2024 06/19/2024, 11/2023, 09/29/2023, Additional history exists MAMMOGRAM 02/01/2025 02/01/2023, 06/16, 01/19/2021, Additional history exists INFLUENZA VACCINE (#1) 2025 , 05/16/2021, 05/16/2020, Additional history exists DIABETIC EYE EXAM 06/19/2025 06/19/2024, , 06/17/2023, Additional history exists TSH LEVEL 06/19/2025 06/19/2024, 12/14, 06/30/2022, Additional history exists Adult Td,Tdap Booster 10/11/2027 10/11/2017 OSTEOPOROSIS SCREENING INITIAL (ONE-TIME) Completed 04/30/2020 HEPATITIS C SCREENING Completed 06/19/2024, 018 HIB VACCINES Aged Out No longer eligi ble based on patient's age to complete this topic MENINGOCOCCAL VACCINES (ACWY) Aged Out No longer eligible based on patient's age to complete this topic MENINGOCOCCAL VACCINES (B) Aged Out N o longer eligible based on patient's age to complete this topic Medical Devices Not on file Procedures Procedure Name Priority Date/Time Associated Diagnosis Comments HM DIABETES EYE EXAM FOR RESULT ENTRY ONLY Routine 06/19/2024 12:48 PM EST HEMOGLOBIN A1C Routine 09/29/2023 11:31 AM EST Type 2 diabetes mellitus without complication, without long-term current use of insulin COMPREHENSIVE METABOLIC PANEL Routine 09/29/2023 11:31 AM EST Type 2 diabetes mellitus without complication, without long-term current use of insulin MAMMOGRAPHY Routine 02/01/2023 TSH WITH REFLEX Routine 12/30/2022 8:46 AM EDT Acquired hypothyroidism BD DXA MONITORING Routine 04/30/2020 COLONOSCOPY FOR RESULT ENTRY ONLY Routine 08/25/2019 OUTSIDE HEPATITIS C VIRUS SCREENING Routine 09/08/2017 from Last 3 Months or Most Recently Relevant to Health Maintenance Results * DIABETES EYE EXAM FOR RESULT ENTRY ONLY (06/19/2024 12:48 PM EST) us Historical Provider [facility] MAINTENANCE Edited Result - Final * (ABNORMAL) Comprehensive metabolic panel (09/29/2023 11:31 AM EST) SODIUM 142 133 - 146 mmol/L [facility] POTASSIUM 3.8 3.3 - 5.1 mmol/L [facility] CHLORIDE 104 96 - 108 mmol/L [facility] CO2 27 21 - 35 mmol/L [facility] BUN 10 6 - 19 mg/dL [facility] CREATININE 0.60 0.5 - 1.5 mg/dL [facility] GLUCOSE 127(H) 70 - 99 mg/dL [facility] ALBUMIN 4.4 3.9 - 4.8 g/dL [facility] TOTAL PROTEIN 6.7 6.5 - 8.0 g/dL [facility] CALCIUM 9.4 8.4 - 10.3 mg/dL [facility] ALKALINE PHOSPHATASE 54 39 - 117 U/L [facility] TOTAL BILIRUBIN 0.4 0.0 - 1.2 mg/dL [facility] AST 23 0 - 37 U/L [facility] ALT 21 0 - 40 U/L [facility] GLOBULIN 2.3 1 - 4.8 g/dL [facility] EGFR 100 >59 mL/min/1.7 3m2 [facility] Comment:Estimated glomerular filtration rate calculated using the CKD-EPI refit equation. ANION GAP 15 10 - 20 mmol/L [facility] Blood 09/29/2023 11:3 1 AM EST 09/29/2023 11:35 AM EST us Shyann Zarate NP LAB BLOOD ORDERABLES Final Resu lt Performing Organization Address [facility]/ZIP Co de Phone Number [address] [address] * (ABNORMAL) Hemoglobin A1c (09/29/2023 11:31 AM EST) HEMOGLOBIN A1C 6.7(H) 4.3 - 5.8 % [facility] Blood 09/29/2023 11:3 1 AM EST 09/29/2023 11:35 AM EST us Shyann Zarate NP LAB BLOOD ORDERABLES Final Resu lt Performing Organization Address [facility] de Phone Number [address] [address] * HM MAMMOGRAPHY FOR RESULT ENTRY ONLY (02/01/2023) us Shyann Zarate NP HEALTH MAINTENANCE Edited Resul t - Final * TSH with reflex (12/30/2022 8:46 AM EDT) TSH 0.80 0.27 - 4.20 uIU/mL [facility] Blood 12/30/2022 8:46 AM EDT 12/30/2022 8:50 AM EDT us Estefania Finnegan CNP LAB BLOOD ORDERABLES F inal Result Performing Organization Address [facility]/ZIP Co de Phone Number [address] [address] * DXA Monitoring (04/30/2020) Anatomical Region Laterality Modality Bone Density Bone Density us Estefania Finnegan DESIGN DRAFTER IMG BD BONE DENSITY DE XA Edited Result - Final * HM COLONOSCOPY FOR RESULT ENTRY ONLY (08/25/2019) Colonoscopy tubular adenoma us Historical Provider HEALTH MAINTENANCE Final Result * Outside Hepatitis C Virus Screening (09/08/2017) Hepatitis C Screening - External Neg us Historical Provider LAB BLOOD ORDERABLES Mayra l Result from Last 3 Months or Most Recently Relevant to Health Maintenance Insurance MEDICARE PART A & B [facility] MEDICARE REPLACEMENT [address] [address] MEDICARE PART A & B [facility] MEDICARE REPLACEMENT [address] [address] MEDICARE PART A & B [address] [place], [place] [address]HEALTH MEDICARE PART A & [facility] B [facility] MEDICARE REPLACEMENT [place] [id number] MEDICARE PART A & B [place] [address] [address] MEDICARE PART A & B [facility] MEDICARE REPLACEMENT [address] [address] MEDICARE PART A & B Member Subscriber Plan / Payer (Ef fective 2011-Present) Name:Tianna Beatty Member ID:[id number] Relation to Subscriber:Self Name:Tianna Beatty Subscriber ID:[id number] Payer ID:[id number] Group ID:Not on file Type:Medicare Address: [employer] [facility] [address] [address] [facility] MEDICARE REPLACEMENT [address] [address] MEDICARE PART A & B [facility] MEDICARE REPLACEMENT Care Teams Lap Hand Tool Relationship Specialty Start Date End Date Millicent Ramsey PA [address] [place] [phone] [email or web address] PCP - General Physician [employer]ipe [address] Street Service 01/17/25 Nathan Moore PA [address] [place] [phone] Orthopedic Surgery 08/29/19 Fatmata Colin MD [address] [place] [phone] [email or web address] Physical Medicine and Rehabilitation 08/29/19 Radha Leggett OD [address] [address] Optometry 09/04/19 Morgan Grajeda MD [address] [place] [address] [address] [place] [address] Gastroenterology 04/11/21 Additional Source Comments The information contained in this document represents components of the legal health record. It is not the complete legal health record.[facility]
--- OUTSIDE RECORDS SUMMARY | 2025-04-18 10:55 | XMS_ITS | Encounter Summary ---
Author Organization [facility] Address [address] [place] [address] Care Team Providers Care Sleeve Turner Name Role Phone Coco Matute PA-C Primary Care Provider [phone] Encounter Details Date Type Department Care Team ([facility] Contact Info) Description 05/06/2015 Interim Notes [facility] [address] [place] [id number] oJhanna Grace, MARCIANO [address] [place] [address] Social History Tobacco Use Types Packs/Day Years Used Date Smoking Tobacco: Every Day Cigarettes 0.5 24 Smokeless Tobacco: Never Comments:might be interested once she leaves [facility] facility Alcohol Use Standard Drinks/Week Comments No 0 (1 standard drink = 0.6 oz pur e alcohol) Comments No Sex and Gender Information Value Date Recorded Sex Assigned at Female 06/13/2024 9:45 AM PDT Legal Sex Female 1:38 PM PDT Gender Identity Female 06/13/2024 9:45 AM PDT Sexual Orientation Straight 06/13/2024 9: 45 AM PDT documented as of this encounter Plan of Treatment Not on file documented as of this encounter Visit Diagnoses Not on filedocumented in this encounter Care Teams Sleeve Turner Relationship Specialty Start Date End Date Coco Matute PA-C [address] [place] [address] PCP - General Primary Care 03/15/24 12/28/24 documented as of this encounter
--- OUTSIDE RECORDS SUMMARY | 2025-04-18 10:55 | XMS_ITS | Encounter Summary ---
Author Organization [facility] Address [address] [place] [address] Care Team Providers Care Instrument Maintenance Supervisor Name Role Phone Coco Matute PA-C Primary Care Provider [phone] Encounter Details Date Type Department Care Team ([facility] Contact Info) Description 12/25/2015 Interim Notes [facility] [address] [place] [id number] Johanna Grace NP [address] [place] [address] Social History Tobacco Use Types Packs/Day Years Used Date Smoking Tobacco: Every Day Cigarettes 0.5 24 Smokeless Tobacco: Never Comments:might be interested once she [facility] Alcohol Use Standard Drinks/Week Comments No [...] documented as of this encounter Visit Diagnoses Diagnosis Type 2 diabetes mellitus without complication (CMS & HHS-HCC) Type II or unspecified type diabetes mellitus without mention of complication, not stated as uncontrolled Routine adult health maintenance Routine general medical examination at a health care facility Hypothyroidism, unspecified hypothyroidism type documented in this encounter Care Teams Instrument Maintenance Supervisor Relationship Specialty Start Date End Date Coco Matute PA-C [address] [place] [address] PCP - General Primary Care 03/15/24 12/28/24 documented as of this encounter
--- OUTSIDE RECORDS SUMMARY | 2025-04-18 10:55 | XMS_ITS | Encounter Summary ---
Author Organization [facility] Address [address] [place] [address] Care Team Providers Care Floorworker Lasting Name Role Phone Coco Matute PA-C Primary Care Provider [phone] Encounter Details Date Type Department Care Team ([facility] Contact Info) Description 03/25/2015 Interim Notes [address] [place] [id number] Johanna Grace, MARCIANO [address] [facility] [place] [address] Social History Tobacco Use Types Packs/Day Years Used Date Smoking Tobacco: Every Day Cigarettes 0.5 24 Smokeless Tobacco: Never Comments:might be interested once she leaves [facility] facility Alcohol Use Standard Drinks/Week [...] on filedocumented in this encounter Care Teams Floorworker Lasting Relationship Specialty Start Date End Date Coco Matute PA-C [address] [place] [address] PCP - General Primary Care 03/15/24 12/28/24 documented as of this encounter
--- OUTSIDE RECORDS SUMMARY | 2025-04-18 10:55 | XMS_ITS | Clinical Summary ---
Author Organization [facility] Address [address] [place] [address] Care Team Providers Care Sat Act Instructor Name Role Phone Unavailable Primary Care Provider Unavailabl e Source Comments PLEASE NOTE, if this patient is a minor, it may be UNLAWFUL to discuss sensitive information that is contained in these records (such as FAMILY PLANNING, MENTAL HEALTH or SUBSTANCE ABUSE) with the minor patient's parent or other person without the patient's specific authorization.[facility] Allergies Active Allergy Reactions Criticality Noted Date Comments Diphenhydramine Medium 11/20/2022 Lidocaine Itching Medium 03/24/2021 Pt. Reports not being able to use lidocaine patch. Lisinopril Cough Low 07/16/2023 Nsaids (Non-Steroidal Anti-Inflammatory Drug) Medium 06/13/2024 Ondansetron Medium 06/13/2024 Medications lancets (FREESTYLE LANCETS) 28 gauge miscIndications: DM (diabetes mellitus) ([facility]) 1 Each by miscellaneous route 2 (two) times daily. And PRN for sx of hypo/hyperglycemia. Dx 250.00 100 Each 11 08/23/19 15 Active hydrOXYzine (ATARAX) 25 mg tablet 2 11/08/19 15 Active alcohol swabs Apply topically See Admin Instructions. 1 Each 0 05/30/20 15 Active blood-glucose meter kit monitoring kitIndications:T ype 2 diabetes mellitus without complication ([facility]) as needed for blood glucose monitoring. BID and PRN for sx of hypo/hyperglycemia. Dx 250.00 1 Each 0 10/24/19 16 Active blood sugar diagnostic (FREESTYLE LITE STRIPS) stripsIndication s:Type 2 diabetes mellitus without complication ([facility]) 1 Strip as needed for high blood sugar. BID and PRN for sx of hypo/hyperglycemia. Dx 250.00 50 Each 11 12/23/19 16 Active eszopiclone (LUNESTA) 1 mg tab Take 1 mg by mouth nightly at bedtime as needed. for sleep 0 03/04/20 16 Active nicotine (NICODERM CQ) 21 mg/24 hr patchIndications :Encounter for smoking cessation counseling Place 1 Patch onto the skin once daily (every 24 hours). 30 Patch 5 03/11/20 16 Active triamcinolone (KENALOG) 0.025 % creamIndications :Rash and nonspecific skin eruption Apply topically 3 (three) times daily as needed for rash. 30 g 1 03/11/20 16 Active omeprazole (PRILOSEC) [address] capsuleIndicatio ns:gastroesophag eal reflux disease Take 1 Cap by mouth 2 (two) times daily Do not crush or chew. Indications: Gastroesophageal Reflux 60 Cap 5 07/29/20 16 Active blood sugar diagnostic (FREESTYLE LITE STRIPS) strips Use 1 Each as directed 2 (two) times daily 1 Strip as needed for high blood sugar. BID and PRN for sx of hypo/hyperglycemia. Dx 250.00 Active acetaminophen (TYLENOL) 500 mg tablet Take 500 mg by mouth every 6 (six) hours as needed Active lactase (LACTAID) 3,000 unit tablet Take 1 Tablet by mouth 4 (four) times daily Active lamoTRIgine (LAMICTAL) 100 mg tablet Take 2 Tablets by mouth once daily Active lamoTRIgine (LAMICTAL) 25 mg tablet Take 1 Tablet by mouth 2 (two) times daily Active lancets 28 gauge Use 1 Each as directed 2 (two) times daily as needed 1 Each by miscellaneous route 2 (two) times daily. And PRN for sx of hypo/hyperglycemia. 11/06/19 23 Active levothyroxine 100 mcg tablet Take 1 Tablet by mouth every other day 10/01/19 24 Active busPIRone (BUSPAR) 10 mg tablet Take 1 Tablet by mouth 2 (two) times daily Active cholecalciferol (VITAMIN D-3) 50 mcg (2,000 unit) capsule Take 2,000 Units by mouth daily Active fluticasone (FLONASE) 50 mcg/actuation nasal spray Place 1 [place] in both nostrils once daily Active melatonin 1 mg tablet Take 1 mg by mouth nightly at bedtime as needed TAKE 1 OR 2 TABLETS BY MOUTH EVERY NIGHT NEEDED FOR SLEEP. Active albuterol HFA (VENTOLIN HFA) 90 mcg/actuation inhalerIndicatio ns:Chronic obstructive pulmonary disease, unspecified COPD type ([facility]) Inhale 2 Puffs into the lungs every 4 (four) hours as needed for shortness of breath or wheezing 18 g 06/13/20 24 Active metFORMIN (GLUCOPHAGE) 500 mg tablet Take 1 Tablet by mouth 2 (two) times daily with a meal 60 Tablet 5 07/21/20 24 Active rizatriptan (MAXALT) 10 mg tablet Take 10 mg by mouth as needed for migraine TAKE 1/2 TO 1 TABLET BY MOUTH NEEDED FOR MIGRAINE; MAY REPEAT IN 2 HOURS IF NEEDED; MAX 2 TABLETS A DAY; LIMIT USE TO 2 DAYS A WEEK. Active EMGALITY PEN 120 mg/mL pnij Inject 120 mg as directed every 28 days Active levothyroxine 88 mcg tabletIndication s:Hypothyroidism , unspecified type Take 1 Tablet by mouth once daily New Rx 90 Tablet 10/04/19 25 Active losartan (COZAAR) 50 mg tablet Take 1 Tablet by mouth once daily 90 Tablet 1 10/04/19 25 Active riboflavin, vitamin B2, 400 mg tab Take 1 Tablet by mouth once daily 90 Tablet 10/04/19 25 Active pantoprazole (PROTONIX) 40 mg EC tablet Take 1 Tablet by mouth once daily 90 Tablet 1 10/04/19 25 Active sucralfate (CARAFATE) 1 gram tablet Take 1 Tablet by mouth 4 (four) times daily 120 Tablet 2 10/10/19 25 Active atorvastatin (LIPITOR) 20 mg tablet Take 1 Tablet by mouth nightly at bedtime 90 Tablet 1 11/08/19 25 Active dicyclomine (BENTYL) 20 mg tablet Take 1 Tablet by mouth 3 (three) times a day 90 Tablet 2 11/14/19 25 Active dulaglutide (TRULICITY) 1.5 mg/0.5 mL pen injector Inject 1.5 mg into the skin once a week 6 mL 2 11/14/19 25 Active Active Problems Problem Noted Date Diagnosed Date H/O mammogram 02/08/2025 Overview (02/08/2025): 10/05/2024 - Mammogram - Impression No mammographic evidence of malignancy. Recommendation: Annual mammographic screening. BI-RADS: 2 (Benign) Foot deformity 10/26/2024 Overview (10/26/2024): 10/24/2024 - [facility] - Dx: DM type 2 with neuropathy; Cavus deformity of left foot; Metatarsalgia of both feet; callus; localized edema; Right hip pain. - Pt given Rx DM shoes with 3 sets of custom Plastizote inserts for proper ambulation Controlled type 2 diabetes m ellitus with diabetic neuropathy ([facility]) 10/26/2024 Overview (10/26/2024): 10/24/2024 - [facility] - Dx: DM type 2 with neuropathy; Cavus deformity of left foot; Metatarsalgia of both feet; callus; localized edema; Right hip pain. - Pt given Rx DM shoes with 3 sets of custom Plastizote inserts for proper ambulation Chronic left shoulder pain 07/31/2024 Overview (07/31/2024): 07/26/2024 - [facility] - Left should pain - degenerative cuff disease of left shoulder. Plan: Repeat cortisone injection Fall 01/27/2017 Overview (01/27/2017): [facility] 01/14/17 for fall. Xrays bilateral knees WNL, show mild OA. L shoulder xray is normal. R foot xray normal. Neck pain 01/27/2017 Overview (01/27/2017): 01/16/17 [facility] MRI of cervical spine w/o contrast- shows multilevel degenerative changes most severe at C5-C7 level. Chronic abdominal pain 03/26/2016 Overview (02/24/2017): [place] [facility] [place], discharged on Bentyl 03/23/16 CT of abdomen WNL; shows question tiny hiatal hernia 04/19/16 [facility] visit for abdominal pain; [place] [facility] [place]. No significant findings. Declined medication QT prolongation 02/05/2016 Overview (02/05/2016): 02/01/[address] Reyez at [facility]- QT improved off of Celexa and trazodone, likely caused by medication. 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 DM (diabetes mellitus) Weight Controlled 013 Hypercholesteremia 05/16/2013 Hernia, hiatal 05/16/2013 Back pain 05/16/2013 Immunizations Immunization Administration Dates Next Due Flu, Cell Culture based, Pre servative Free, 6m+, Flucelvax 05/15/2020 Flu, Preservative Free 07/03/2022,05/16/2021 INFLUENZA, SEASONAL, INJECTABLE 05/16/20 20,06/14/2019,06/17/2018,05/10,08/25/2017,05/08/2016 PFIZER COVID VACCINE, PURPLE CAP, 12+ 12/04/2020 PNEUMOCOCCAL CONJUGATE PCV 13 08/19/2016 PNEUMOCOCCAL POLYSACCHARIDE PPV23 (Pneumovax 23) 10/11/2017 Td (adult) unspecified 10/11/2017 ZOSTER VACCINE, RECOMBINANT (SHINGRIX) 4 Family History * Patient is adopted Medical History Relation Name Comments Cancer Brother 2 lung cancer Diabetes Father Cancer Mother lung cancer Relation Name Status Comments Brother 1 HIV/AIDS 1991 Brother 2 Daughter Alive daughter with s erve mental/cognitive delay Father Mother Sister Hyperthyroid Social History Tobacco Use Types Packs/Day Years Used Date Smoking Tobacco: Former Cigarettes 0.5 24 Smokeless Tobacco: Never Tobacco Cessation:Counseling Given: Not Answered Comments:Types: Cigarettes Start date: 1990 Quit date: 07/2022 Alcohol Use Standard Drinks/Week Comments No 0 (1 standard drink = 0.6 oz pur e alcohol) Social Connections Answer Date Recorded How often do you feel lonely or isolated from th ose around you? 1 08/31/2024 Financial Resource Strain Answer Date R ecorded Hard to pay for: Food 1 08/31/2024 Stress Answer Date Recorded Do you feel these kinds of stress these days? 1 08/31/2024 Physical Activity Answer Date Recorded Physical Activity 0 03/15/2024 Food Insecurity Answer Date Recorded Hard to pay for: Food 1 08/31/2024 Transportation Needs Answer Date Record ed Hard to pay for: Transportation 1 08/31/2024 Housing Stability Answer Date Recorded Hard to pay for: Rent/Mortgage payment 1 08/31/2024 Safety and Environment Answer Date Familia rded Safety 0 03/15/2024 Utilities Answer Date Recorded Hard to pay for: Utilities 1 08/31 Employment Answer Date Recorded Stress 0 05/03/2024 Comments No Sex and Gender Information Value Date Recorded Sex Assigned at Female 06/13/2024 9:45 AM PDT Legal Sex Female 1:38 PM PDT Gender Identity Female 06/13/2024 9:45 AM PDT Sexual Orientation Straight 06/13/2024 9: 45 AM PDT Last Filed Vital Signs Vital Sign Reading Time Taken Comments Blood Pressure 130/80 08/31/2024 10:51 AM EST Pulse 100 08/31/2024 10:51 AM EST Temperature 36.7 C (98.1 F) 08/31/2024 10:51 AM EST Respiratory Rate 17 08/31/2024 10:51 AM EST Oxygen Saturation 99% 08/31/2024 10:51 AM EST Inhaled Oxygen Concentration - - Weight 72.6 kg (160 lb) 08/31/2024 10:51 AM EST Height 151.1 cm (4' 11.5 ) 08/31/2024 10:[address] Body Mass Index 31.78 08/31/2024 10:51 AM EST Plan of Treatment Health Maintenance Due Date Last Done Comments Dental Examination 1958 CT Colonography 2003 Colonoscopy 2003 Colorectal Cancer Screening 2003 FIT/gFOBT 2003 Fecal DNA 2003 Flexible Sigmoidoscopy 2003 Tobacco Cessation Counseling (#2) 05/15/2014 06/04/2015, 12/22/2013, 05/19/2013 Tobacco Screening 06/04/2016 06/04/2015, , 05/19/2013 Imm-DTaP/Tdap/Td (1 - Tdap) 10/12/2017 10/11/2017 Imm-Pneumococcal 50+ (3 of 3 - PCV20 or PCV21) 10/11/2022 10/11/2017, 08/19/2016 Bone Density Screening 2023 Imm-Zoster, Recombinant (2 of 2) 06/27/2024 05/02/20 24 Depression Annual Screen 08/16/2024 016 (Managed by Outside Provider), 01/28/2015 Falls Prevention 06/13/2025 06/13/2024 Lipid Screening 06/19/2025 06/19/2024, 04/17, 03/11/2016, Additional history exists Hypertension Screening (#1) 08/31/2025 TSH Monitoring 10/03/2025 10/03/2024, 11/2023, 12/30/2022, Additional history exists Medicare Annual Wellness Visit 10/18/2025 10/18/2024 , 08/31/2024 Breast Cancer Screening (Mammogram) 10/05/2026 10/05/2024, 08/15/2015 (Managed by Outside Provider) Diabetes Screening 06/19/2027 06/19/2024, 1 08/19/2023, 09/29/2023, Additional history exists [id number] Discontinued 08/14/2021, 042 08/2020, 11/16/2020 Imm-Influenza Discontinued 07/03/2022, 08/2020, 05/16/2020, Additional history exists Hepatitis C Screening Completed 06/19/2024 , 03/21/2015, 03/21/2015, Additional history exists Alcohol and Drug Screen Completed 08/31/19, 06/13/2024, 03/11/2016, Additional history exists Procedures Procedure Name Priority Date/Time Associated Diagnosis Comments ANNUAL WELLNESS VISIT SCANNED DOCUMENT 10/18/2024 3:00 AM EST HISTORIC MAMMOGRAM 10/05/2024 3: 00 AM EST TSH W/RFLX FREE T4 Routine 10/03/2024 9: 07 AM EST Hypothyroidism, unspecified type HEPATITIS C AB W/RFLX HCV RNA, QT, RT PCR Routine 06/19/2024 9:15 AM EST Encounter to establish care HGBA1C W/MPG Routine 06/19/2024 9:15 AM EST Encounter to establish care Diabetes mellitus type 2, noninsulin dependent (HCC-CMS) LIPID PANEL Routine 06/19/2024 9:15 AM EST Encounter to establish care Diabetes mellitus type 2, noninsulin dependent (HCC-CMS) from Last 3 Months or Most Recently Relevant to Health Maintenance Results * ANNUAL WELLNESS VISIT SCANNED DOCUMENT (10/18/2024 3:00 AM EST) 10/18/2024 3:00 AM EST us Bonnie Bryan PA-C SCAN OTHER ORDERS Final Resu lt * HISTORIC MAMMOGRAM (10/05/2024 3:00 AM EST) 10/05/2024 3:00 AM EST Coco Matute PA-C IMG MAMMO Final Resul t * TSH W/RFLX FREE T4 (10/03/2024 9:07 AM EST) Pathologist [facility] TSH W/REFLEX TO FT4 1.64 0.40 - 4.50 mIU/L [facility] Blood Blood / Unknown 10/03/2024 9 :07 AM EST 10/03/2024 9:07 AM EST Coco Matute PA-C LAB - BLOOD DRAW Final Resu lt [facility] [address] [address], [employer] [address] [address] * HEPATITIS C AB W/RFLX HCV RNA, QT, RT PCR (06/19/2024 9:15 AM EST) HEPATITIS C ANTIBODY NON-REACT VISHAL NON-REACT VISHAL [facility] Comment: HCV antibody was non-reactive. There is no laboratory evidence of HCV infection. In most cases, no further action is required. However, if recent HCV exposure is suspected, a test for HCV RNA (test code 30862) is suggested. For additional information please refer to http://education.Mingleverse/faq/OGZ80p7 (This link is being provided for informational/ educational purposes only.) Blood Blood / Unknown 06/19/2024 9 :15 AM EST 06/19/2024 9:16 AM EST Narrative [facility] - 06/20/2024 5:54 PM EST FASTING:YES us Coco Matute PA-C LAB - BLOOD DRAW Edited Res t - Final [facility] [address] [place] [id number], [facility] [address] [place] [phone] * (ABNORMAL) HGBA1C W/MPG (06/19/2024 9:15 AM EST) HEMOGLOBIN A1C 6.9(H) <5.7 % of total Hgb [facility] Comment: For someone without known diabetes, a hemoglobin A1c value of 6.5% or greater indicates that they may have diabetes and this should be confirmed with a follow-up test. For someone with known diabetes, a value <7% indicates that their diabetes is well controlled and a value greater than or equal to 7% indicates suboptimal control. A1c targets should be individualized based on duration of diabetes, age, comorbid conditions, and other considerations. Currently, no consensus exists regarding use of hemoglobin A1c for diagnosis of diabetes for children. MEAN PLASMA GLUCOSE 168 mg/dL (calc) [facility] Blood Blood / Unknown 06/19/2024 9 :15 AM EST 06/19/2024 9:16 AM EST Narrative [facility] - 06/20/2024 5:54 PM EST FASTING:YES us Coco Matute PA-C LAB - BLOOD DRAW Edited Res ult - Final Performing Organization Address City/[facility]/ZIP Co de Phone Number [employer] [address] [address], [facility] [address] [address] * LIPID PANEL (06/19/2024 9:15 AM EST) CHOLESTEROL, TOTAL 175 <200 mg/dL [facility] HDL CHOLESTEROL 61 > OR = 50 mg/dL [facility] TRIGLYCERIDES 106 <150 mg/dL [facility] LDL-CHOLESTEROL 94 99 mg/dL (calc) [facility] Comment: Reference range: <100 Desirable range <100 mg/dL for primary prevention; <70 mg/dL for patients with CHD or diabetic patients with > or = 2 CHD risk factors. LDL-C is now calculated using the Claire calculation, which is a validated novel method providing better accuracy than the Friedewald equation in the estimation of LDL-C. Francesco SS et al. MAU. 2013;310(19): 8099-5145 (http://education.The Auto Vault/faq/DZV267) CHOL/HDLC RATIO 2.9 <5.0 (calc) [facility] NON-HDL CHOLESTEROL 114 <130 mg/dL (calc) [facility] Comment: For patients with diabetes plus 1 major ASCVD risk factor, treating to a non-HDL-C goal of <100 mg/dL (LDL-C of <70 mg/dL) is considered a therapeutic option. Blood Blood / Unknown 06/19/2024 9 :15 AM EST 06/19/2024 9:16 AM EST Narrative [facility] - 06/20/2024 5:54 PM EST FASTING:YES us Coco Matute PA-C LAB - BLOOD DRAW Final Resu lt Performing Organization Address [facility]/ZIP Co de Phone Number [facility] [address] [address], [employer] [address] [phone] from Last 3 Months or Most Recently Relevant to Health Maintenance Insurance [facility]
== END 2025-04-18 09:46 | disposition home or self-care (01) ==
LOC: HO.XRAY 09:45
DX: M79.672 Pain in left foot (principal)
CPT/HCPCS: 73630

== ENCOUNTER → 2025-04-18 10:00 | Outpatient (BNV) | payer OTHER, SELFPAY | PROVIDERS: Visit Provider Radiology Diagnostic Radiology | DX: M20.12 Hallux valgus (acquired), left foot (principal) | CPT/HCPCS: 73630 ==